=== PATIENT | male | born 1970 | race Caucasian/White ===

== ENCOUNTER 2021-12-09 09:14 | Outpatient (CLI) | payer OTHER, SELFPAY ==
--- NOTE | 2021-12-09 10:58 | W.ANESCHARGE ---
Anesthesia Charges Start Date/Time Anesthesia Start Date: 12/09/21 Anesthesia Start Time: 10:35 Stop Date/Time Anesthesia Stop Date: 12/09/21 Anesthesia Stop Time: 10:55 Summary Emergency: No
--- NOTE | 2021-12-09 10:59 | W.ANESCHARGE ---
Anesthesia Charges Start Date/Time Anesthesia Start Date: 12/09/21 Anesthesia Start Time: 10:35 Stop Date/Time Anesthesia Stop Date: 12/09/21 Anesthesia Stop Time: 10:55 Summary Emergency: No
== END 2021-12-09 09:15 | disposition home or self-care (01) ==
LOC: OP CLINIC 09:14
PROVIDERS: PCP Family Medicine; Visit Provider Internal Medicine Gastroenterology
DX: R10.13 Epigastric pain (principal); K21.9 Gastro-esophageal reflux disease without esophagitis; R12 Heartburn; R07.9 Chest pain, unspecified
CPT/HCPCS: 00731; 43239; J2704

== ENCOUNTER 2023-01-22 14:00 | Emergency (ER) | payer OTHER, SELFPAY ==
[2023-01-22] VITALS (21 sets, daily range): BP systolic 125–139; BP diastolic 83–95; PULSE 102–130; RESP 16; TEMP 36.8; O2SAT 94–96; BMI 23.7
--- NOTE | 2023-01-22 14:28 | ED.ARRPALP ---
HPI - Arrhythmia/Palpitations General Time Seen by Provider: 14:28 <Shelli Carlton MD - Last Filed: 01/22/23 17:23> Date Seen: 01/22/23 <Shelli Carlton MD - Last Filed: 01/22/23 17:23> Chief Complaint: Arrhythmia/Palpitations <Shelli Carlton MD - Last Filed: 01/22/23 17:23> Stated Complaint: irregular heartbeat <Shelli Carlton MD - Last Filed: 01/22/23 17:23> Time Seen by Provider: 01/22/23 14:27 <Shelli Carlton MD - Last Filed: 01/22/23 17:23> Source: patient and RN notes reviewed <Shelli Carlton MD - Last Filed: 01/22/23 17:23> Mode of arrival: ambulatory <Shelli Carlton MD - Last Filed: 01/22/23 17:23> Limitations: no limitations <Shelli Carlton MD - Last Filed: 01/22/23 17:23> History of Present Illness HPI narrative: Juan is a very pleasant 53-year-old gentleman with a history of PTSD and anxiety after an acute appendicitis who comes to the emergency room with elevated heart rate. Patient states that he awoke at 0400 hours with a panic attack as he has been under considerable stress and recently found out that his job is going to be eliminated in the next few months. He notes that he took a half a mg of Ativan and that usually this will help calm the situation down but unfortunately his heart rate has continued. He denies chest pain but does note he has pain radiating into his left shoulder blade. He states that this happens often when he is stressed. He denies any nausea or recent illness and has not had a fever. He has no history of DVT, no swelling of his calves and has not been on a long plane ride or long car ride lately. His states that after his appendicitis he was never the same. Patient denies alcohol use, tobacco use, Benadryl use, excess caffeine. Patient adamantly denies any drug use as well. <Shelli Carlton MD - Last Filed: 01/22/23 17:23> Related Data Home Medications: Home Medications Medication Instructions Recorded Confirmed amlodipine 5 mg tablet 10 mg PO DAILY 10/15/21 01/22/23 atenolol 50 mg tablet 50 mg PO DAILY 10/15/21 01/22/23 hydrochlorothiazide 25 mg tablet 25 mg PO DAILY 10/15/21 01/22/23 lorazepam 0.5 mg tablet 0.5 mg PO .once daily 10/15/21 01/22/23 mirtazapine 45 mg tablet 45 mg PO .Bedtime 10/15/21 10/15/21 sertraline 200 mg capsule 200 mg PO QDAY 09/09/22 01/22/23 buspirone 15 mg tablet 15 mg PO 3XD 01/22/23 01/22/23 <Shelli Carlton MD - Last Filed: 01/22/23 17:23> Allergies/Adverse Reactions: Allergies Allergy/AdvReac Type Severity Reaction Status Date / Time No Known Allergies Allergy Unknown Verified 01/22/23 14:12 <Shelli Carlton MD - Last Filed: 01/22/23 17:23> Review of Systems Status of ROS: Reports: 10 or more systems reviewed and unremarkable except as noted in History and below <Shelli Carlton MD - Last Filed: 01/22/23 17:23> Const: Denies: fever, chills or change in weight <Shelli Carlton MD - Last Filed: 01/22/23 17:23> Eyes: Denies: change in vision <Shelli Carlton MD - Last Filed: 01/22/23 17:23> ENMT: Denies: throat pain, neck pain or difficulty swallowing <Shelli Carlton MD - Last Filed: 01/22/23 17:23> Cardio: Reports: palpitations; Denies: chest pain, swelling of feet/ankles, lightheadedness or shortness of breath with exertion <Shelli Carlton MD - Last Filed: 01/22/23 17:23> Resp: Denies: shortness of breath or cough <Shelli Carlton MD - Last Filed: 01/22/23 17:23> GI: Denies: abdominal pain, nausea, vomiting or difficulty swallowing <Shelli Carlton MD - Last Filed: 01/22/23 17:23> : Denies: painful urination <Shelli Carlton MD - Last Filed: 01/22/23 17:23> Musculo: Reports: back pain (Left shoulder); Denies: neck pain <Shelli Carlton MD - Last Filed: 01/22/23 17:23> Integ/Breast: Denies: rash <Shelli Carlton MD - Last Filed: 01/22/23 17:23> Neuro: Denies: headache <Shelli Carlton MD - Last Filed: 01/22/23 17:23> PFSH PFS Social History: Social History Smoking Status: Never smoker Non-prescribed substance use: denies use <Shelli Carlton MD - Last Filed: 01/22/23 17:23> Exam Narrative: Exam Narrative: Patient is alert and oriented. Somewhat of a flat affect. Is very anxious. EOM is full. Head is atraumatic normocephalic. Heart with a tachycardic rate but normal rhythm. Lungs are clear bilaterally. Abdomen soft. Lower extremities without calf tenderness edema or pain. Pedal pulses symmetrical. <Shelli Carlton MD - Last Filed: 01/22/23 17:23> Const: Vital Signs, click to edit/add: Vital Signs - 24 hr 01/22/23 14:09 01/22/23 16:22 01/22/23 18:03 Temperature 98.2 F Pulse Rate 125 H Pulse Rate [Pulse Oximeter] 130 H Respiratory Rate 16 Blood Pressure 139/95 H Blood Pressure [Ri ght Upper Arm] 139/88 Pulse Oximetry 95 94 Oxygen Delivery Me thod Room Air 01/22/23 18:15 01/22/23 18:30 01/22/23 18:46 Temperature Pulse Rate 119 H 115 H 117 H Pulse Rate [Pulse Oximeter] Respiratory Rate Blood Pressure Blood Pressure [Ri ght Upper Arm] Pulse Oximetry 95 94 95 Oxygen Delivery Me thod 01/22/23 19:00 01/22/23 19:18 01/22/23 19:34 Temperature Pulse Rate 121 H 118 H 118 H Pulse Rate [Pulse Oximeter] Respiratory Rate Blood Pressure Blood Pressure [Ri ght Upper Arm] Pulse Oximetry 95 95 94 Oxygen Delivery Me thod 01/22/23 19:59 01/22/23 20:00 01/22/23 20:01 Temperature Pulse Rate 110 H 110 H 113 H Pulse Rate [Pulse Oximeter] Respiratory Rate Blood Pressure 131/83 Blood Pressure [Ri ght Upper Arm] Pulse Oximetry 94 94 95 Oxygen Delivery Me thod 01/22/23 20:02 01/22/23 20:45 01/22/23 21:00 Temperature Pulse Rate 112 H 117 H 112 H Pulse Rate [Pulse Oximeter] Respiratory Rate Blood Pressure Blood Pressure [Ri ght Upper Arm] Pulse Oximetry 94 95 95 Oxygen Delivery Me thod 01/22/23 21:15 01/22/23 21:35 01/22/23 21:57 Temperature Pulse Rate 111 H 123 H 104 H Pulse Rate [Pulse Oximeter] Respiratory Rate Blood Pressure 136/91 H Blood Pressure [Ri ght Upper Arm] Pulse Oximetry 95 95 95 Oxygen Delivery Me thod 01/22/23 21:58 01/22/23 22:00 01/22/23 22:02 Temperature Pulse Rate 103 H 102 H 102 H Pulse Rate [Pulse Oximeter] Respiratory Rate Blood Pressure 125/89 Blood Pressure [Ri ght Upper Arm] Pulse Oximetry 95 95 96 Oxygen Delivery Me thod <Shelli Carlton MD - Last Filed: 01/22/23 17:23> Vital Signs, click to edit/add: Vital Signs - 24 hr 01/22/23 14:09 01/22/23 16:22 01/22/23 18:03 Temperature 98.2 F Pulse Rate 125 H Pulse Rate [Pulse Oximeter] 130 H Respiratory Rate 16 Blood Pressure 139/95 H Blood Pressure [Ri ght Upper Arm] 139/88 Pulse Oximetry 95 94 Oxygen Delivery Me thod Room Air 01/22/23 18:15 01/22/23 18:30 01/22/23 18:46 Temperature Pulse Rate 119 H 115 H 117 H Pulse Rate [Pulse Oximeter] Respiratory Rate Blood Pressure Blood Pressure [Ri ght Upper Arm] Pulse Oximetry 95 94 95 Oxygen Delivery Me thod 01/22/23 19:00 01/22/23 19:18 01/22/23 19:34 Temperature Pulse Rate 121 H 118 H 118 H Pulse Rate [Pulse Oximeter] Respiratory Rate Blood Pressure Blood Pressure [Ri ght Upper Arm] Pulse Oximetry 95 95 94 Oxygen Delivery Me thod 01/22/23 19:59 01/22/23 20:00 01/22/23 20:01 Temperature Pulse Rate 110 H 110 H 113 H Pulse Rate [Pulse Oximeter] Respiratory Rate Blood Pressure 131/83 Blood Pressure [Ri ght Upper Arm] Pulse Oximetry 94 94 95 Oxygen Delivery Me thod 01/22/23 20:02 01/22/23 20:45 01/22/23 21:00 Temperature Pulse Rate 112 H 117 H 112 H Pulse Rate [Pulse Oximeter] Respiratory Rate Blood Pressure Blood Pressure [Ri ght Upper Arm] Pulse Oximetry 94 95 95 Oxygen Delivery Me thod 01/22/23 21:15 01/22/23 21:35 01/22/23 21:57 Temperature Pulse Rate 111 H 123 H 104 H Pulse Rate [Pulse Oximeter] Respiratory Rate Blood Pressure 136/91 H Blood Pressure [Ri ght Upper Arm] Pulse Oximetry 95 95 95 Oxygen Delivery Me thod 01/22/23 21:58 01/22/23 22:00 01/22/23 22:02 Temperature Pulse Rate 103 H 102 H 102 H Pulse Rate [Pulse Oximeter] Respiratory Rate Blood Pressure 125/89 Blood Pressure [Ri ght Upper Arm] Pulse Oximetry 95 95 96 Oxygen Delivery Me thod <Philipp Schrader DO - Last Filed: 01/22/23 22:14> Documenting provider has reviewed patient's vital signs: yes <Shelli Carlton MD - Last Filed: 01/22/23 17:23> Course Course ED Course: At this time differential diagnosis does include anxiety/panic attack, acute coronary event, electrolyte imbalance, hyperthyroidism. Will place an IV give 1 L of normal saline along with 0.5 mg IV Ativan. Will also check CBC, comprehensive, EKG, troponin, D-dimer. <Shelli Carlton MD - Last Filed: 01/22/23 17:23> Reevaluation(s) Reevaluation #1: Patient noted to have improvement in heart rate to the 110 range with Ativan 0.5 mg. We have repeated that and patient does state he is feeling better. At this time magnesium low normal at 1.7 and have ordered magnesium 400 mg p.o.. Patient noted to have a negative D-dimer. Oxygen levels within normal limits. No chest pain at this time. Currently waiting on TSH. <Shelli Carlton MD - Last Filed: 01/22/23 17:23> Reevaluation #2: Patient does note that he is feeling better. Notes that his shoulder pain which is present during panic attacks full events and panic attacks is better. Unfortunately in spite of 1 mg IV Ativan total he still has a persistent sinus tachycardia at 0115. Will obtain 2nd EKG as well as get 2nd troponin. Valium 5 mg p.o. is ordered. <Shelli Carlton MD - Last Filed: 01/22/23 17:23> Vital Signs Vital signs: Initial Vital Signs Temperature 98.2 F 01/22/23 14:09 Temperature Source Temporal Artery Scan 01/22/23 14:09 Pulse Rate 130 H 01/22/23 14:09 Respiratory Rate 16 01/22/23 14:09 Blood Pressure 139/88 01/22/23 14:09 Blood Pressure Mean 105 01/22/23 14:09 Blood Pressure Position Sitting 01/22/23 14:09 Pulse Oximetry 95 01/22/23 14:09 Oxygen Delivery Method Room Air 01/22/23 14:09 Vital Signs Temperature 98.2 F 01/22/23 14:09 Pulse Rate 130 H 01/22/23 14:09 Respiratory Rate 16 01/22/23 14:09 Blood Pressure 139/88 01/22/23 14:09 Pulse Oximetry 95 01/22/23 14:09 Oxygen Delivery Method Room Air 01/22/23 14:09 Temperature 98.2 F 01/22/23 14:09 Pulse Rate 102 H 01/22/23 22:02 Respiratory Rate 16 01/22/23 14:09 Blood Pressure 125/89 01/22/23 22:02 Pulse Oximetry 96 01/22/23 22:02 Oxygen Delivery Method Room Air 01/22/23 14:09 <Shelli Carlton MD - Last Filed: 01/22/23 17:23> Initial Vital Signs Temperature 98.2 F 01/22/23 14:09 Temperature Source Temporal Artery Scan 01/22/23 14:09 Pulse Rate 130 H 01/22/23 14:09 Respiratory Rate 16 01/22/23 14:09 Blood Pressure 139/88 01/22/23 14:09 Blood Pressure Mean 105 01/22/23 14:09 Blood Pressure Position Sitting 01/22/23 14:09 Pulse Oximetry 95 01/22/23 14:09 Oxygen Delivery Method Room Air 01/22/23 14:09 Vital Signs Temperature 98.2 F 01/22/23 14:09 Pulse Rate 130 H 01/22/23 14:09 Respiratory Rate 16 01/22/23 14:09 Blood Pressure 139/88 01/22/23 14:09 Pulse Oximetry 95 01/22/23 14:09 Oxygen Delivery Method Room Air 01/22/23 14:09 Temperature 98.2 F 01/22/23 14:09 Pulse Rate 102 H 01/22/23 22:02 Respiratory Rate 16 01/22/23 14:09 Blood Pressure 125/89 01/22/23 22:02 Pulse Oximetry 96 01/22/23 22:02 Oxygen Delivery Method Room Air 01/22/23 14:09 <Philipp Schrader, DO - Last Filed: 01/22/23 22:14> Medications Administered Medications: Generic Name Dose Route Start Last Admin Trade Name Debbi PRN Reason Stop Dose Admin Adenosine 6 mg 01/22/23 21:59 01/22/23 21:50 Adenosine 6 Mg/2ml Inj IVP 01/22/23 22:00 6 mg ONCE ONE Administration Metoprolol Tartrate 5 mg 01/22/23 21:59 01/22/23 21:53 Metoprolol Tartrate 1 Mg/Ml Inj IVP 01/22/23 22:00 5 mg ONCE ONE Administration Discontinued Medications Generic Name Dose Route Start Last Admin Trade Name Debbi PRN Reason Stop Dose Admin Diazepam 5 mg 01/22/23 17:14 01/22/23 17:34 Diazepam 5 Mg Tablet PO 01/22/23 17:15 5 mg ONCE ONE Administration Sodium Chloride 1,000 mls @ 1,000 mls/hr 01/22/23 14:43 01/22/23 16:11 0.9 % Sodium Chloride 1000 Ml IV 01/22/23 15:42 Infused .Q1H SASCHA Infusion Lorazepam 0.5 mg 01/22/23 14:44 01/22/23 15:11 Lorazepam 2 Mg/Ml Inj IVP 01/22/23 14:45 0.5 mg ONCE ONE Administration Lorazepam 0.5 mg 01/22/23 15:23 01/22/23 16:22 Lorazepam 2 Mg/Ml Inj IVP 01/22/23 15:24 0.5 mg ONCE ONE Administration Magnesium Oxide 400 mg 01/22/23 16:38 01/22/23 17:34 Magnesium Oxide 400 Mg Tablet PO 01/22/23 16:39 400 mg ONCE ONE Administration <Shelli Carlton MD - Last Filed: 01/22/23 17:23> Generic Name Dose Route Start Last Admin Trade Name Freq PRN Reason Stop Dose Admin Adenosine 6 mg 01/22/23 21:59 01/22/23 21:50 Adenosine 6 Mg/2ml Inj IVP 01/22/23 22:00 6 mg ONCE ONE Administration Metoprolol Tartrate 5 mg 01/22/23 21:59 01/22/23 21:53 Metoprolol Tartrate 1 Mg/Ml Inj IVP 01/22/23 22:00 5 mg ONCE ONE Administration Discontinued Medications Generic Name Dose Route Start Last Admin Trade Name Freq PRN Reason Stop Dose Admin Diazepam 5 mg 01/22/23 17:14 01/22/23 17:34 Diazepam 5 Mg Tablet PO 01/22/23 17:15 5 mg ONCE ONE Administration Sodium Chloride 1,000 mls @ 1,000 mls/hr 01/22/23 14:43 01/22/23 16:11 0.9 % Sodium Chloride 1000 Ml IV 01/22/23 15:42 Infused .Q1H SASCHA Infusion Lorazepam 0.5 mg 01/22/23 14:44 01/22/23 15:11 Lorazepam 2 Mg/Ml Inj IVP 01/22/23 14:45 0.5 mg ONCE ONE Administration Lorazepam 0.5 mg 01/22/23 15:23 01/22/23 16:22 Lorazepam 2 Mg/Ml Inj IVP 01/22/23 15:24 0.5 mg ONCE ONE Administration Magnesium Oxide 400 mg 01/22/23 16:38 01/22/23 17:34 Magnesium Oxide 400 Mg Tablet PO 01/22/23 16:39 400 mg ONCE ONE Administration <Philipp Schrader DO - Last Filed: 01/22/23 22:14> MDM - Arrhythmia/Palpitations MDM Narrative Medical decision making narrative: 1. Tachycardia-likely related to stressors but not resolved at this time in spite of 1 mg IV Ativan. At this time EKG is reassuring and troponin is negative. Thus do not feel that we are dealing with acute coronary syndrome. However, will obtain 2nd EKG and troponin at this time. D-dimer negative and given the normal oxygenation with no chest pain do not feel that we are dealing with a PE at this time or dissection. At this time. Onset of symptoms at 0400 hours, initially felt confident that we would not repeat a troponin in light of duration of symptoms but at this time patient has ongoing tachycardia. Will repeat EKG as well as troponin. No evidence of low vitamin-D, hyperthyroidism. 2. Anxiety-this is severe. Valium 5 mg p.o. at this time. Patient tells me that he has tried to taper off of Ativan previously but was unable to do so. He is not currently in a taper describes taking Ativan 0.5 mg daily. At this time recommend a full mg tomorrow morning and then back to 0.5 mg. Patient should also follow up with his primary MD. 3. Disposition- this case will be signed out to my partner for disposition. Will review EKG and 2nd troponin as well as response to p.o. Valium. I have also added chest x-ray. <Shelli Carlton MD - Last Filed: 01/22/23 17:23> Patient was signed out to me pending deck assessment and CTA. CTA results showed no acute abnormality other than mildly dilated left ventricle which could be signs of heart failure but he is not having any shortness of breath and otherwise is not appear to be in heart failure. There is a dilated fluid-filled stomach this could be sign of gastroenteritis but he is having no abdominal symptoms at this time. Patient was assessed by [facility] who states he can be discharged home from their standpoint but or working on increasing his resources for his anxiety. I did speak to Cardiology from [place] and explained the situation. They state the patient still appears anxious and he states he is feeling anxious and they recommended give him adenosine even with heart rate 116 so that we can slow him down farther and fully be able to check for any signs of EKG abnormalities. They then is recommended Lopressor some down more if his heart rate comes back up. They are agreeable with sending him home on metoprolol if it does help. Adenosine was given 6 mg and it did slow his heart rate down to the 40s for short amount time and I still saw the P waves and no signs of a flutter or AFib. Was difficult to say for certain that there was not a flutter the monitor. Show more just movement artifact. He was then given 5 mg of Lopressor which brought his heart rate down to 101. We did an EKG which did showed normal sinus rhythm with possible first-degree AV block and a rate of 104 beats per minute. Of note we will I will get of clear EKG and there is some artifact. Patient is feeling well and states he does the all his symptoms are all from anxiety. He is on atenolol at home 50 mg so I did explain to him that he should take his regular dose but he does have persistent tachycardia to take a 2nd dose once a day for total of 100 mg. He states he checks his blood pressure frequently and his blood pressure cuff does show him his heart rate. He is otherwise doing well we discharged home. <Philipp Schrader DO - Last Filed: 01/22/23 22:14> Medical Records Attestation: I reviewed the patient's medical records. <Shelli Carlton MD - Last Filed: 01/22/23 17:23> Lab Data Attestation: I reviewed the patient's lab results. <Shelli Carlton MD - Last Filed: 01/22/23 17:23> Labs: Lab Results 01/22/23 01/22/23 01/22/23 Range/Units 15:12 15:35 17:14 WBC 12.87 H (4.50-11.00) K/uL RBC 5.43 (4.30-5.90) m/uL Hgb 15.6 (13.5-17.5) gm/dL Hct 45.6 (37.0-53.0) % MCV 84 (80-100) fL MCH 29 (26-34) pg MCHC 34 (32-36) gm/dL RDW Coeff of Seb 12.4 (11.5-15.5) % Plt Count 311 (140-440) K/uL Neut % (Auto) 91.9 H (42.0-72.0) % Lymph % (Auto) 2.9 L (20-44) % [place] % (Auto) 3.8 (0.0-11.0) % Eos % (Auto) 0.1 (0.0-7.0) % Baso % (Auto) 0.1 (0.0-3.0) % Neut # (Auto) 11.80 H (1.7-7.0) K/uL Lymph # (Auto) 0.40 L (0.90-2.90) K/uL [place] # (Auto) 0.50 (0.00-0.90) K/UL Eos # (Auto) 0.00 (0.00-0.50) K/uL Baso # (Auto) 0.00 (0.00-0.30) K/uL Abs Immat Gran (auto) 0.20 (0.00-0.30) K/uL Imm/Tot Granulo (auto) 1.2 % D-Dimer Quant (PE/DVT) < 0.27 (0.00-0.50) ug/ml Sodium 139 (135-149) mmol/L Potassium 3.3 L (3.6-5.1) mmol/L Chloride 101 (96-114) mmol/L Carbon Dioxide 26 (20-32) mmol/L Anion Gap 12 (7-15) mEq/L BUN 28 (7-30) mg/dL Creatinine 1.0 (0.5-1.5) mg/dL Estimated Creat Clear 95.44 Estimated GFR 89 ml/min Glucose 116 H (60-115) mg/dL Calcium 9.3 (8.4-10.6) mg/dL Magnesium 1.7 (1.5-2.6) mg/dL Total Bilirubin 0.9 (0.1-1.5) mg/dL AST 25 (12-35) U/L ALT 28 (4-50) U/L Alkaline Phosphatase 59 (40-150) U/L Troponin I < 0.01 L (0.01-0.04) ng/mL Total Protein 7.8 (6.0-8.3) g/dL Albumin 4.9 (3.3-5.0) g/dL 25-OH Vitamin D Total 45 (30-80) ng/mL TSH 0.709 (0.270-4.200) uIU/mL Urine Color (Yellow) Urine Appearance (Clear) Urine pH (5.0-8.5) Ur Specific [place] (1.000-1.030) Urine Protein (Negative) Urine Glucose (UA) (Negative) Urine Ketones (Negative) Urine Blood (Negative) Urine Nitrite (Negative) Urine Bilirubin (Negative) Urine Urobilinogen (0.2-1.0) Ur Leukocyte Esterase (Negative) Urine RBC (0-2) Urine WBC (0-5) Ur Squamous Epith Cells (None-Few) Urine Bacteria (None) Urine Opiates Screen (Negative) Ur Oxycodone Screen (Negative) Urine Methadone Screen (Negative) Ur Propoxyphene Screen Ur Barbiturates Screen (Negative) U Tricyclic Antidepress (Negative) Ur Phencyclidine Scrn (Negative) Ur Amphetamines Screen (Negative) U Methamphetamines Scrn (Negative) U Benzodiazepines Scrn (Negative) Urine Cocaine Screen (Negative) U Marijuana (THC) Screen (Negative) Ur Drug Screen Comment SARS-CoV-2 (PCR) Negative SARS-CoV-2 (Negative) Influenza Type A (PCR) Negative PCR FLU A (Negative) Influenza Type B (PCR) Negative PCR FLU B (Negative) RSV (PCR) Negative PCR RSV (Negative) POC Troponin I 0.01 (0.01-0.04) ng/ml 01/22/23 Range/Units Unknown WBC (4.50-11.00) K/uL RBC (4.30-5.90) m/uL Hgb (13.5-17.5) gm/dL Hct (37.0-53.0) % MCV (80-100) fL MCH (26-34) pg MCHC (32-36) gm/dL RDW Coeff of Seb (11.5-15.5) % Plt Count (140-440) K/uL Neut % (Auto) (42.0-72.0) % Lymph % (Auto) (20-44) % [place] % (Auto) (0.0-11.0) % Eos % (Auto) (0.0-7.0) % Baso % (Auto) (0.0-3.0) % Neut # (Auto) (1.7-7.0) K/uL Lymph # (Auto) (0.90-2.90) K/uL [place] # (Auto) (0.00-0.90) K/UL Eos # (Auto) (0.00-0.50) K/uL Baso # (Auto) (0.00-0.30) K/uL Abs Immat Gran (auto) (0.00-0.30) K/uL Imm/Tot Granulo (auto) % D-Dimer Quant (PE/DVT) (0.00-0.50) ug/ml Sodium (135-149) mmol/L Potassium (3.6-5.1) mmol/L Chloride (96-114) mmol/L Carbon Dioxide (20-32) mmol/L Anion Gap (7-15) mEq/L BUN (7-30) mg/dL Creatinine (0.5-1.5) mg/dL Estimated Creat Clear Estimated GFR ml/min Glucose (60-115) mg/dL Calcium (8.4-10.6) mg/dL Magnesium (1.5-2.6) mg/dL Total Bilirubin (0.1-1.5) mg/dL AST (12-35) U/L ALT (4-50) U/L Alkaline Phosphatase (40-150) U/L Troponin I (0.01-0.04) ng/mL Total Protein (6.0-8.3) g/dL Albumin (3.3-5.0) g/dL 25-OH Vitamin D Total (30-80) ng/mL TSH (0.270-4.200) uIU/mL Urine Color Yellow (Yellow) Urine Appearance Clear (Clear) Urine pH 6.0 (5.0-8.5) Ur Specific [place] 1.020 (1.000-1.030) Urine Protein Negative (Negative) Urine Glucose (UA) Negative (Negative) Urine Ketones Negative (Negative) Urine Blood 2+ A (Negative) Urine Nitrite Negative (Negative) Urine Bilirubin Negative (Negative) Urine Urobilinogen 0.2 (0.2-1.0) Ur Leukocyte Esterase Negative (Negative) Urine RBC 2-5 A (0-2) Urine WBC 2-5 (0-5) Ur Squamous Epith Cells None (None-Few) Urine Bacteria None (None) Urine Opiates Screen Negative (Negative) Ur Oxycodone Screen Negative (Negative) Urine Methadone Screen Negative (Negative) Ur Propoxyphene Screen Not Reportable Ur Barbiturates Screen Negative (Negative) U Tricyclic Antidepress Negative (Negative) Ur Phencyclidine Scrn Negative (Negative) Ur Amphetamines Screen Negative (Negative) U Methamphetamines Scrn Negative (Negative) U Benzodiazepines Scrn POSITIVE A (Negative) Urine Cocaine Screen Negative (Negative) U Marijuana (THC) Screen Negative (Negative) Ur Drug Screen Comment See Note SARS-CoV-2 (PCR) (Negative) Influenza Type A (PCR) (Negative) Influenza Type B (PCR) (Negative) RSV (PCR) (Negative) POC Troponin I (0.01-0.04) ng/ml <Shelli Carlton MD - Last Filed: 01/22/23 17:23> Lab Results 01/22/23 01/22/23 01/22/23 Range/Units 15:12 15:35 17:14 WBC 12.87 H (4.50-11.00) K/uL RBC 5.43 (4.30-5.90) m/uL Hgb 15.6 (13.5-17.5) gm/dL Hct 45.6 (37.0-53.0) % MCV 84 (80-100) fL MCH 29 (26-34) pg MCHC 34 (32-36) gm/dL RDW Coeff of Seb 12.4 (11.5-15.5) % Plt Count 311 (140-440) K/uL Neut % (Auto) 91.9 H (42.0-72.0) % Lymph % (Auto) 2.9 L (20-44) % [place] % (Auto) 3.8 (0.0-11.0) % Eos % (Auto) 0.1 (0.0-7.0) % Baso % (Auto) 0.1 (0.0-3.0) % Neut # (Auto) 11.80 H (1.7-7.0) K/uL Lymph # (Auto) 0.40 L (0.90-2.90) K/uL [place] # (Auto) 0.50 (0.00-0.90) K/UL Eos # (Auto) 0.00 (0.00-0.50) K/uL Baso # (Auto) 0.00 (0.00-0.30) K/uL Abs Immat Gran (auto) 0.20 (0.00-0.30) K/uL Imm/Tot Granulo (auto) 1.2 % D-Dimer Quant (PE/DVT) < 0.27 (0.00-0.50) ug/ml Sodium 139 (135-149) mmol/L Potassium 3.3 L (3.6-5.1) mmol/L Chloride 101 (96-114) mmol/L Carbon Dioxide 26 (20-32) mmol/L Anion Gap 12 (7-15) mEq/L BUN 28 (7-30) mg/dL Creatinine 1.0 (0.5-1.5) mg/dL Estimated Creat Clear 95.44 Estimated GFR 89 ml/min Glucose 116 H (60-115) mg/dL Calcium 9.3 (8.4-10.6) mg/dL Magnesium 1.7 (1.5-2.6) mg/dL Total Bilirubin 0.9 (0.1-1.5) mg/dL AST 25 (12-35) U/L ALT 28 (4-50) U/L Alkaline Phosphatase 59 (40-150) U/L Troponin I < 0.01 L (0.01-0.04) ng/mL Total Protein 7.8 (6.0-8.3) g/dL Albumin 4.9 (3.3-5.0) g/dL 25-OH Vitamin D Total 45 (30-80) ng/mL TSH 0.709 (0.270-4.200) uIU/mL Urine Color (Yellow) Urine Appearance (Clear) Urine pH (5.0-8.5) Ur Specific [place] (1.000-1.030) Urine Protein (Negative) Urine Glucose (UA) (Negative) Urine Ketones (Negative) Urine Blood (Negative) Urine Nitrite (Negative) Urine Bilirubin (Negative) Urine Urobilinogen (0.2-1.0) Ur Leukocyte Esterase (Negative) Urine RBC (0-2) Urine WBC (0-5) Ur Squamous Epith Cells (None-Few) Urine Bacteria (None) Urine Opiates Screen (Negative) Ur Oxycodone Screen (Negative) Urine Methadone Screen (Negative) Ur Propoxyphene Screen Ur Barbiturates Screen (Negative) U Tricyclic Antidepress (Negative) Ur Phencyclidine Scrn (Negative) Ur Amphetamines Screen (Negative) U Methamphetamines Scrn (Negative) U Benzodiazepines Scrn (Negative) Urine Cocaine Screen (Negative) U Marijuana (THC) Screen (Negative) Ur Drug Screen Comment SARS-CoV-2 (PCR) Negative SARS-CoV-2 (Negative) Influenza Type A (PCR) Negative PCR FLU A (Negative) Influenza Type B (PCR) Negative PCR FLU B (Negative) RSV (PCR) Negative PCR RSV (Negative) POC Troponin I 0.01 (0.01-0.04) ng/ml 01/22/23 Range/Units Unknown WBC (4.50-11.00) K/uL RBC (4.30-5.90) m/uL Hgb (13.5-17.5) gm/dL Hct (37.0-53.0) % MCV (80-100) fL MCH (26-34) pg MCHC (32-36) gm/dL RDW Coeff of Seb (11.5-15.5) % Plt Count (140-440) K/uL Neut % (Auto) (42.0-72.0) % Lymph % (Auto) (20-44) % [place] % (Auto) (0.0-11.0) % Eos % (Auto) (0.0-7.0) % Baso % (Auto) (0.0-3.0) % Neut # (Auto) (1.7-7.0) K/uL Lymph # (Auto) (0.90-2.90) K/uL [place] # (Auto) (0.00-0.90) K/UL Eos # (Auto) (0.00-0.50) K/uL Baso # (Auto) (0.00-0.30) K/uL Abs Immat Gran (auto) (0.00-0.30) K/uL Imm/Tot Granulo (auto) % D-Dimer Quant (PE/DVT) (0.00-0.50) ug/ml Sodium (135-149) mmol/L Potassium (3.6-5.1) mmol/L Chloride (96-114) mmol/L Carbon Dioxide (20-32) mmol/L Anion Gap (7-15) mEq/L BUN (7-30) mg/dL Creatinine (0.5-1.5) mg/dL Estimated Creat Clear Estimated GFR ml/min Glucose (60-115) mg/dL Calcium (8.4-10.6) mg/dL Magnesium (1.5-2.6) mg/dL Total Bilirubin (0.1-1.5) mg/dL AST (12-35) U/L ALT (4-50) U/L Alkaline Phosphatase (40-150) U/L Troponin I (0.01-0.04) ng/mL Total Protein (6.0-8.3) g/dL Albumin (3.3-5.0) g/dL 25-OH Vitamin D Total (30-80) ng/mL TSH (0.270-4.200) uIU/mL Urine Color Yellow (Yellow) Urine Appearance Clear (Clear) Urine pH 6.0 (5.0-8.5) Ur Specific [place] 1.020 (1.000-1.030) Urine Protein Negative (Negative) Urine Glucose (UA) Negative (Negative) Urine Ketones Negative (Negative) Urine Blood 2+ A (Negative) Urine Nitrite Negative (Negative) Urine Bilirubin Negative (Negative) Urine Urobilinogen 0.2 (0.2-1.0) Ur Leukocyte Esterase Negative (Negative) Urine RBC 2-5 A (0-2) Urine WBC 2-5 (0-5) Ur Squamous Epith Cells None (None-Few) Urine Bacteria None (None) Urine Opiates Screen Negative (Negative) Ur Oxycodone Screen Negative (Negative) Urine Methadone Screen Negative (Negative) Ur Propoxyphene Screen Not Reportable Ur Barbiturates Screen Negative (Negative) U Tricyclic Antidepress Negative (Negative) Ur Phencyclidine Scrn Negative (Negative) Ur Amphetamines Screen Negative (Negative) U Methamphetamines Scrn Negative (Negative) U Benzodiazepines Scrn POSITIVE A (Negative) Urine Cocaine Screen Negative (Negative) U Marijuana (THC) Screen Negative (Negative) Ur Drug Screen Comment See Note SARS-CoV-2 (PCR) (Negative) Influenza Type A (PCR) (Negative) Influenza Type B (PCR) (Negative) RSV (PCR) (Negative) POC Troponin I (0.01-0.04) ng/ml <Philipp Schrader, - Last Filed: 01/22/23 22:14> Imaging Data CTA chest: Radiologist's impression: 1. Negative for acute pulmonary embolism. 2. New borderline cardiomegaly with mildly dilated left ventricle. 3. Markedly dilated fluid-filled stomach with fluid in the colon and distal esophagus. Correlate clinically for signs of gastroenteritis. Please note that all CT scans at this facility use dose modulation, iterative reconstruction, and/or weight-based dosing when appropriate to reduce radiation dose to as low as reasonably achievable. Dictated by Geetha Du MD @ 01/22/2023 9:03:12 PM <Philipp Schrader DO - Last Filed: 01/22/23 22:14> ECG Data Attestation: I personally reviewed and interpreted this ECG as follows: <Shelli Carlton MD - Last Filed: 01/22/23 17:23> ECG interpretation date: 01/22/23 <Shelli Carlton MD - Last Filed: 01/22/23 17:23> Interpretation: EKG by my read shows sinus tachycardia. Rate is 121. I do not note any acute ST or T-wave changes. <Shelli Carlton MD - Last Filed: 01/22/23 17:23> Discharge Plan Discharge Clinical Impression: Anxiety, Tachycardia <Shelli Carlton MD - Last Filed: 01/22/23 17:23> Patient Disposition: Home w/ Parent or Adult <Shelli Carlton MD - Last Filed: 01/22/23 17:23> Condition: Improved <Shelli Carlton MD - Last Filed: 01/22/23 17:23> Additional Instructions: May take 1 mg of Ativan tomorrow morning and then go back to your normal dose. If you have persistent tachycardia at home which is heart rate over 100 take an extra dose of atenolol. Only take the extra dose once a day for total of 100 mg daily. If the heart rate is below 100 do not take the extra dose. Also do not take the extra dose if your blood pressure is lower than normal. Keep well hydrated. Recommend adding magnesium daily. Return to the emergency room for worsening symptoms and as needed. <Shelli Carlton MD - Last Filed: 01/22/23 17:23> Prescriptions: No Action atenolol 50 mg tablet 50 mg PO DAILY hydrochlorothiazide 25 mg tablet 25 mg PO DAILY mirtazapine 45 mg tablet 45 mg PO .Bedtime lorazepam 0.5 mg tablet 0.5 mg PO .once daily amlodipine 5 mg tablet 10 mg PO DAILY sertraline 200 mg capsule 200 mg PO QDAY buspirone 15 mg tablet 15 mg PO 3XD <Shelli Carlton MD - Last Filed: 01/22/23 17:23> Follow Up/Referrals: Willy Coleman MD [Primary Care Provider] - <Shelli Carlton MD - Last Filed: 01/22/23 17:23> Stand Alone Forms: [facility] Info Instructions <Shelli Carlton MD - Last Filed: 01/22/23 17:23>
[2023-01-22] MEDS: 0.9 % SODIUM CHLORIDE 1000 ml 1,000 ML IV (15:11)
[2023-01-22] MEDS: LORazepam 2 MG/ML inj 0.5 MG IVP ×2 (15:11→16:22)
[2023-01-22 15:21] LABS: Basophils Percent Auto 0.1 % (0.0-3.0); Eosinophils Percent Auto 0.1 % (0.0-7.0); Hematocrit 45.6 % (37.0-53.0); Hemoglobin* 15.6 gm/dL (13.5-17.5); Immature Granulocytes Pct Auto 1.2 %; Lymphocytes Percent Auto 2.9 % (20-44); Mean Corpuscular HGB Conc 34 gm/dL (32-36); Mean Corpuscular Hemoglobin 29 pg (26-34); Mean Corpuscular Volume 84 fL (80-100); Monocytes Percent Auto 3.8 % (0.0-11.0); Neutrophils Percent Auto 91.9 % (42.0-72.0); Platelet Count* 311 K/uL (140-440); RDW Coefficient of Variation % 12.4 % (11.5-15.5); Red Blood Count 5.43 m/uL (4.30-5.90); White Blood Count* 12.87 K/uL (4.50-11.00)
[2023-01-22 15:34] LABS: Slide Review Reflex No
[2023-01-22 15:39] LABS: Albumin* 4.9 g/dL (3.3-5.0); Chloride* 101 mmol/L (96-114); Sodium* 139 mmol/L (135-149)
[2023-01-22 15:40] LABS: Potassium* 3.3 mmol/L (3.6-5.1)
[2023-01-22 15:41] LABS: Est. Creatinine Clearance* 95.44; Estimated Glomerular Filt Rate 89 ml/min
[2023-01-22 15:42] LABS: Alanine Aminotransferase* 28 U/L (4-50); Alkaline Phosphatase* 59 U/L (40-150); Anion Gap 12 mEq/L (7-15); Aspartate Amino Transferase* 25 U/L (12-35); Bilirubin Total* 0.9 mg/dL (0.1-1.5); Blood Urea Nitrogen* 28 mg/dL (7-30); Calcium* 9.3 mg/dL (8.4-10.6); Carbon Dioxide* 26 mmol/L (20-32); Glucose* 116 mg/dL (60-115); Total Protein* 7.8 g/dL (6.0-8.3)
[2023-01-22 16:05] LABS: Magnesium* 1.7 mg/dL (1.5-2.6)
[2023-01-22 16:12] LABS: D Dimer Quantitative* < 0.27 ug/ml (0.00-0.50)
[2023-01-22 16:23] LABS: Vitamin D 25 Hydroxy* 45 ng/mL (30-80)
[2023-01-22 16:26] LABS: Troponin I* < 0.01 ng/mL (0.01-0.04)
[2023-01-22 16:37] LABS: TSH With Reflex to FT4* 0.709 uIU/mL (0.270-4.200)
[2023-01-22 17:01] LABS: PCR FLU A Negative PCR FLU A (Negative); PCR FLU B Negative PCR FLU B (Negative); PCR RSV Negative PCR RSV (Negative)
[2023-01-22 17:02] LABS: SARS PCR* Negative SARS-CoV-2 (Negative)
--- NOTE | 2023-01-22 17:22 | CRLHL7_ITS ---
For Patients: As a result of the Century Cures Act, medical imaging exams and procedure reports are released immediately into your electronic medical record. You may view this report before your referring provider. If you have questions, please contact your health care provider. INDICATION: Tachycardia. TECHNIQUE: Chest 1 view. COMPARISON: 07/16/2020. FINDINGS: Cardiovascular and mediastinum: Heart size and vasculature are normal in caliber and appearance. Lungs and pleural spaces: Lungs are clear. No sign of infiltrate or mass. No sign of pleural effusion. No pneumothorax. Bones and soft tissues: No significant findings. IMPRESSION: Unremarkable chest. Dictated by Deric Marquis MD @ 01/22/2023 7:10:39 PM (Electronically Signed)
--- NOTE | 2023-01-22 17:30 | ED.NURSE ---
Patient offered ham sandwich and accepts.
[2023-01-22] MEDS: MAGNESIUM OXIDE 400 MG TABLET PO (17:34)
[2023-01-22] MEDS: diazePAM 5 MG TABLET PO (17:34)
--- NOTE | 2023-01-22 17:56 | ED.NURSE ---
of patient requested to speak without patient preset. She reports serious concern with level of depression and anxiety she has seen over the past three years. She reports that he has gone to speak with mental health but once he goes he refuses to go back. He stares at the wall all day. She reports severe decline in his relationships with his children as well due to his drastic personality change.
[2023-01-22 18:18] LABS: Troponin, Point-of-Care* 0.01 ng/ml (0.01-0.04)
[2023-01-22 18:55] LABS: Appearance Urine Clear (Clear); Bilirubin Urine Negative (Negative); Blood Urine 2+ (Negative); Color Urine Yellow (Yellow); Glucose Urine Negative (Negative); Ketones Urine Negative (Negative); Leukocyte Esterase Urine Negative (Negative); Nitrite Urine Negative (Negative); Protein Urine Negative (Negative); Urobilinogen Urine 0.2 (0.2-1.0)
--- NOTE | 2023-01-22 19:00 | ED.NURSE ---
Patient put division head light to ask about taking his rx Buspar that he has in his pocket. MD gives ok to take.
[2023-01-22 19:01] LABS: Amphetamine Screen Urine Negative (Negative); Barbiturate Screen Urine Negative (Negative); Benzodiazepines Screen Urine POSITIVE (Negative); Cannabinoid Screen Urine Negative (Negative); Cocaine Screen Urine Negative (Negative); Methadone Screen Urine Negative (Negative); Methamphetamines Screen Urine Negative (Negative); Opiate Screen Urine Negative (Negative); Oxycodone Screen Urine Negative (Negative); Phencyclidine Screen Urine Negative (Negative); Tricyclic Antidepressant Urine Negative (Negative)
--- NOTE | 2023-01-22 19:28 | CRLHL7_ITS ---
For Patients: As a result of the Century Cures Act, medical imaging exams and procedure reports are released immediately into your electronic medical record. You may view this report before your referring provider. If you have questions, please contact your health care provider. INDICATION: Persistent tachycardia. COMPARISON: CT chest 02/09/2020. TECHNIQUE: CT chest angiogram PE protocol acquired with 95 cc of Isovue 370 IV contrast. Coronal and sagittal reconstructions. 2D and 3D MIP images for post processing were performed and interpreted on an independent workstation, and 3D images were permanently archived. FINDINGS: The heart appears increased in size compared to prior exam, now borderline enlarged, with mildly dilated left ventricle. Normal caliber thoracic aorta and central pulmonary arteries. No acute pulmonary embolism identified. No pericardial effusion. No thoracic lymphadenopathy. The thyroid gland is normal in appearance. No focal consolidation, pleural effusion, or pneumothorax. Mild bibasilar dependent atelectasis. No suspicious pulmonary nodules identified. No central endobronchial lesion or significant bronchial wall thickening. Markedly distended fluid-filled stomach. Fluid in the distal esophagus may be due to reflux. Fluid within the visualized colon. Mild nonspecific thickening of the left adrenal gland. The visualized upper abdomen is otherwise unremarkable. Degenerative changes of the spine. IMPRESSION: 1. Negative for acute pulmonary embolism. 2. New borderline cardiomegaly with mildly dilated left ventricle. 3. Markedly dilated fluid-filled stomach with fluid in the colon and distal esophagus. Correlate clinically for signs of gastroenteritis. Please note that all CT scans at this facility use dose modulation, iterative reconstruction, and/or weight-based dosing when appropriate to reduce radiation dose to as low as reasonably achievable. Dictated by Geetha Du MD @ 01/22/2023 9:03:12 PM (Electronically Signed)
--- NOTE | 2023-01-22 20:04 | ED.NURSE ---
Patient participating with DEC.
[2023-01-22] MEDS: ADENOSINE 6 MG/2ML INJ IVP (21:50)
[2023-01-22] MEDS: METOPROLOL TARTRATE 1 MG/ML inj 5 MG IVP (21:53)
== END 2023-01-22 22:29 | disposition home or self-care (01) ==
PROVIDERS: Family Medicine; Emergency Provider Student in an Organized Health Care Education/Training Program; PCP Family Medicine
DX: F41.9 Anxiety disorder, unspecified (principal); R00.0 Tachycardia, unspecified
CPT/HCPCS: 36415; 71045; 71275; 80053; 80306; 81001; 82306; 83735; 84443; 84484; 85025; 85379; 87631; 93005; 96374; 96375; 96376; 99284; 99285; A9270; J0153; J2060; J7030; Q9967

== ENCOUNTER 2023-02-03 19:40 | Outpatient (CLI) | payer OTHER, SELFPAY | END 2023-02-03 19:41 | disposition home or self-care (01) | LOC: AMB 02-06 11:35 | PROVIDERS: PCP Family Medicine; Visit Provider Family Medicine | DX: R41.82 Altered mental status, unspecified (principal) | CPT/HCPCS: A0425; A0427 ==

== ENCOUNTER 2023-02-03 20:10 | Emergency (ER) | payer OTHER, SELFPAY ==
[2023-02-03 20:25] VITALS: BP 118/83; PULSE 89; RESP 16; TEMP 37; O2SAT 99
--- NOTE | 2023-02-03 20:49 | ED.GENADULT ---
HPI - General Adult General Time Seen by Provider: 20:50 Date Seen: 02/03/23 Chief complaint: Unspecified Complaint, Adult Stated complaint: Anxiety Time Seen by Provider: 02/03/23 20:13 Source: patient Mode of arrival: EMS Limitations: no limitations History of Present Illness HPI narrative: 53-year-old male brought in by EMS. Patient's spouse was brought in by EMS and paramedics did not feel patient could be left at home due to anxiety. Patient self has no complaints today. He has a significant history anxiety as well as hypertension. He says he does not feel any more anxious than usual. Denies suicide or homicide ideation. No chest pain, shortness of breath, nausea, vomiting, diarrhea. Related Data Home Medications Medication Instructions Recorded Confirmed amlodipine 5 mg tablet 10 mg PO DAILY 10/15/21 02/03/23 atenolol 50 mg tablet 50 mg PO DAILY 10/15/21 02/03/23 hydrochlorothiazide 25 mg tablet 25 mg PO DAILY 10/15/21 02/03/23 lorazepam 0.5 mg tablet 0.5 mg PO .once daily 10/15/21 02/03/23 mirtazapine 45 mg tablet 45 mg PO .Bedtime 10/15/21 02/03/23 sertraline 200 mg capsule 200 mg PO QDAY 09/09/22 02/03/23 buspirone 15 mg tablet 15 mg PO 3XD 01/22/23 02/03/23 Allergies Allergy/AdvReac Type Severity Reaction Status Date / Time No Known Allergies Allergy Unknown Verified 02/03/23 20:23 [facility] Social History Smoking Status: Never smoker Non-prescribed substance use: denies use Exam Narrative: Exam Narrative: General: Well-developed and well-nourished, no acute distress Head: Atraumatic and normocephalic Eyes: Pupils are equal reactive, extraocular motions intact, conjunctiva clear ENT: External nose and ears are normal, posterior pharynx without erythema or exudate Neck: No midline cervical tenderness, full spontaneous range of motion the neck, trachea midline, no adenopathy Heart: Regular rate and rhythm no murmurs or thrills Lungs: Clear to auscultation bilaterally without wheezes or crackles Abdomen: Soft, nontender, nondistended with active bowel sounds Musculoskeletal: No tenderness, deformity, or edema Neurologic: Awake, alert, and oriented x3, no gross focal neurologic deficits, cranial nerves intact as tested Psych: Mood and affect are appropriate Skin: No rashes Const: Vital Signs, click to edit/add: Vital Signs - 24 hr 02/03/23 20:25 Temperature 98.6 F Pulse Rate [Pulse Oximeter] 89 Respiratory Rate 16 Blood Pressure [Ri ght Upper Arm] 118/83 Pulse Oximetry 99 Oxygen Delivery Me thod Room Air Course Course ED Course: Patient seen and examined, prior records are reviewed. Patient presents today as a right along from EMS. His history of anxiety but has no complaints today. Stable for discharge. Vital Signs Vital signs: Initial Vital Signs Temperature 98.6 F 02/03/23 20:25 Temperature Source Temporal Artery Scan 02/03/23 20:25 Pulse Rate 89 02/03/23 20:25 Respiratory Rate 16 02/03/23 20:25 Blood Pressure 118/83 02/03/23 20:25 Blood Pressure Mean 94 02/03/23 20:25 Blood Pressure Position Sitting 02/03/23 20:25 Pulse Oximetry 99 02/03/23 20:25 Oxygen Delivery Method Room Air 02/03/23 20:25 Vital Signs Temperature 98.6 F 02/03/23 20:25 Pulse Rate 89 02/03/23 20:25 Respiratory Rate 16 02/03/23 20:25 Blood Pressure 118/83 02/03/23 20:25 Pulse Oximetry 99 02/03/23 20:25 Oxygen Delivery Method Room Air 02/03/23 20:25 Temperature 98.6 F 02/03/23 20:25 Pulse Rate 89 02/03/23 20:25 Respiratory Rate 16 02/03/23 20:25 Blood Pressure 118/83 02/03/23 20:25 Pulse Oximetry 99 02/03/23 20:25 Oxygen Delivery Method Room Air 02/03/23 20:25 Discharge Plan Discharge Clinical Impression: Anxiety Patient Disposition: Home w/ Parent or Adult Condition: Stable Instructions: Anxiety (ED) Additional Instructions: Continue your regular medications and outpatient treatment Activity Level: No Restrictions Discharge Diet: Regular Prescriptions: No Action atenolol 50 mg tablet 50 mg PO DAILY hydrochlorothiazide 25 mg tablet 25 mg PO DAILY mirtazapine 45 mg tablet 45 mg PO .Bedtime lorazepam 0.5 mg tablet 0.5 mg PO .once daily amlodipine 5 mg tablet 10 mg PO DAILY sertraline 200 mg capsule 200 mg PO QDAY buspirone 15 mg tablet 15 mg PO 3XD Follow Up/Referrals: Willy Coleman MD [Primary Care Provider] - Stand Alone Forms: [facility] Info Instructions
== END 2023-02-03 21:38 | disposition home or self-care (01) ==
LOC: ED 20:58
PROVIDERS: Emergency Provider Family Medicine; PCP Family Medicine
DX: F41.9 Anxiety disorder, unspecified (principal)
CPT/HCPCS: 95992; 99283

== ENCOUNTER 2023-10-28 13:14 | Emergency (ER) | payer OTHER, SELFPAY ==
[2023-10-28 13:29] VITALS: BP 137/81; PULSE 110; RESP 26; TEMP 37.7; O2SAT 97; BMI 23.1
--- NOTE | 2023-10-28 15:36 | ED_ITS ---
HPI - General Adult General Chief complaint: Anxiety Stated complaint: Heart palp, anxiety attack Time Seen by Provider: 10/28/23 15:21 History of Present Illness HPI narrative: Patient is a 53-year-old white male with history of Parkinson's and anxiety, he woke up for this morning had significant anxiety intermittently through the day felt some palpitations. He has had this in the past. At this time on presentation he has sinus rhythm at 102 beats per minute with no acute ST T wave changes he has had no chest pain, he has had no breathing difficulty, no diaphoresis or arm pain or neck pain or jaw pain. He has had multiple presentations with similar anxiety issues and typically that is the source of his concerns. The patient denies leg swelling, edema, he has had negative D- dimer in the past with similar presentation. He denies trauma or injury. He is on Sinemet for his Parkinson's. He did take an Ativan 0.5 mg today he is on buspirone atenolol mirtazapine sertraline and venlafaxine as well. The patient did wake up with a slight sore throat in the middle the night but he reports is better at this time. No cough, no shortness of breath. Related Data Home Medications ?Medication ?Instructions ?Recorded ?Confirmed amlodipine 5 mg tablet 10 mg PO DAILY 10/15/21 10/28/23 atenolol 50 mg tablet 50 mg PO DAILY 10/15/21 10/28/23 hydrochlorothiazide 25 mg tablet 25 mg PO DAILY 10/15/21 10/28/23 lorazepam 0.5 mg tablet 0.5 mg PO .once daily 10/15/21 10/28/23 mirtazapine 45 mg tablet 45 mg PO .Bedtime 10/15/21 10/28/23 sertraline 200 mg capsule 200 mg PO QDAY 09/09/22 02/03/23 buspirone 15 mg tablet 15 mg PO 3XD 01/22/23 10/28/23 carbidopa 25 mg-levodopa 100 mg 1 tab PO 3XD 10/28/23 10/28/23 tablet venlafaxine 150 mg 150 mg PO DAILY 10/28/23 10/28/23 capsule,extended release 24 hr Allergies Allergy/AdvReac Type Severity Reaction Status Date / Time No Known Allergies Allergy Unknown Verified 12/19/23 20:23 Review of Systems Status of ROS: Reports: 6 or more systems reviewed and unremarkable except as noted in History and below [facility] Social History Smoking Status: Never smoker How often do you have a drink containing alcohol: never AUDIT-C Alcohol total score: 0 Non-prescribed substance use: denies use Exam Narrative: Exam Narrative: Objective: Patient's temp is 99? Alert orient x3, is little initially little tachycardic when he arrives but he is down to the 95 to 1 00 on his monitor. His HEENT is unremarkable, his throat appears clear not red he reports that is better now neck supple Chest is clear Heart rate and rhythm regular with door 6 systolic ejection murmur no ectopy noted abdomen benign extremities are no edema neurologic nonfocal Good peripheral perfusion noted Patient denies any chest pain or breathing problem throughout his day-to-day Const: Vital Signs, click to edit/add: Vital Signs - 24 hr 10/28/23 13:29 Temperature 99.9 F H Pulse Rate [Pulse Oximeter] 110 H Respiratory Rate 26 H Blood Pressure [Ri ght Upper Arm] 137/81 Pulse Oximetry 97 Oxygen Delivery Me thod Room Air Course Vital Signs Vital signs: Initial Vital Signs Temperature 99.9 F H 10/28/23 13:29 Temperature Source Temporal Artery Scan 10/28/23 13:29 Pulse Rate 110 H 10/28/23 13:29 Respiratory Rate 26 H 10/28/23 13:29 Blood Pressure 137/81 10/28/23 13:29 Blood Pressure Mean 99 10/28/23 13:29 Pulse Oximetry 97 10/28/23 13:29 Oxygen Delivery Method Room Air 10/28/23 13:29 Vital Signs Temperature 99.9 F H 10/28/23 13:29 Pulse Rate 110 H 10/28/23 13:29 Respiratory Rate 26 H 10/28/23 13:29 Blood Pressure 137/81 10/28/23 13:29 Pulse Oximetry 97 10/28/23 13:29 Oxygen Delivery Method Room Air 10/28/23 13:29 Temperature 99.9 F H 10/28/23 13:29 Pulse Rate 110 H 10/28/23 13:29 Respiratory Rate 26 H 10/28/23 13:29 Blood Pressure 137/81 10/28/23 13:29 Pulse Oximetry 97 10/28/23 13:29 Oxygen Delivery Method Room Air 10/28/23 13:29 Medical Decision Making MDM Narrative Medical decision making narrative: 53-year-old male with a history of Parkinson's and significant anxiety, woke up at 4:00 a.m. with significant anxiety, had a mild sore throat that seems better improved at this time, he also had some palpitations he reports that as a jumping of his heart, not pain not shortness of breath. He has had similar episodes in the past. He did take Ativan and got better. I suggest he try mg Ativan now and any can continue his usual dosages home, and we can see how that progresses his EKG done today shows sinus rhythm at rate of 102 ventricular beats per minute no acute ST T wave changes. At this point I do not think a D- dimer troponin is indicated given he did have chest pain and does not have palpitations at this time I think most of his symptoms are anxiety related. Would recommend continue his home medicines and follow up with regular doctor in next few days for reassessment anxiety and other issues, return to ED if problems or concerns. His is able to drive him home today. Discharge Plan Discharge Clinical Impression: Anxiety, Palpitations Patient Disposition: Home w/ Parent or Adult Condition: Improved Additional Instructions: Continue home meds, light activity, good fluid intake, recheck with your regular doctor next 5-7 days, return to ED as needed. Activity Level: Light activity Discharge Diet: Regular Prescriptions: No Action atenolol 50 mg tablet 50 mg PO DAILY hydrochlorothiazide 25 mg tablet 25 mg PO DAILY mirtazapine 45 mg tablet 45 mg PO .Bedtime lorazepam 0.5 mg tablet 0.5 mg PO .once daily amlodipine 5 mg tablet 10 mg PO DAILY sertraline 200 mg capsule 200 mg PO QDAY venlafaxine 150 mg capsule,extended release 24hr 150 mg PO DAILY carbidopa-levodopa 25-100 mg tablet 1 tab PO 3XD buspirone 15 mg tablet 15 mg PO 3XD Follow Up/Referrals: Willy Coleman MD [Primary Care Provider] - Stand Alone Forms: [facility] Info Instructions
== END 2023-10-28 16:14 | disposition home or self-care (01) ==
LOC: ED 16:04
PROVIDERS: Emergency Provider Family Medicine; PCP Family Medicine
DX: R00.2 Palpitations (principal); F41.9 Anxiety disorder, unspecified
CPT/HCPCS: 99284

== ENCOUNTER 2024-11-17 20:05 | Emergency (ER) | payer OTHER, SELFPAY ==
--- OUTSIDE RECORDS SUMMARY | 2024-11-17 20:07 | XMS_ITS | Clinical Summary ---
Author Organization [facility] Address [address] [place] [id number] Care Team Providers Care Bulldozer Engineer Name Role Phone Willy Coleman MD Primary Care Provider Arpita Beverlyirina Jacome TRACK EQUIPMENT OPERATOR Unavailable [phone] Allergies No known active allergies Medications Magnesium 30 mg tablet Take 1 Tablet by mouth once daily. Active atenoloL (TENORMIN) 50 mg tabletIndications: Benign essential HTN Take 1 Tablet (50 mg) by mouth once daily. 90 Tablet 3 4 Active amLODIPine (NORVASC) 10 mg tabletIndications: Benign essential HTN Take 1 Tablet (10 mg) by mouth once daily. 90 Tablet 3 4 Active carbidopa-levodopa (25-100 mg) 25-100 mg tabletIndications: Parkinson's disease without dyskinesia or fluctuating manifestations (HC) TAKE 1 TABLET BY MOUTH THREE TIMES DAILY 270 Tablet 5 Active clonazePAM (KLONOPIN) 0.5 mg tabletIndications: Generalized anxiety disorder 0.5 - 1 tab PO three times a day PRN as needed for anxiety 90 Tablet 1 5 Active busPIRone (BUSPAR) 15 mg tabletIndications: Generalized anxiety disorder with panic attacks Take 1 Tablet (15 mg) by mouth three times daily. 90 Tablet 2 5 Active mirtazapine (REMERON) 15 mg tabletIndications: Generalized anxiety disorder,Mild episode of recurrent major depressive disorder TAKE 1/2 TABLET(7.5 MG) BY MOUTH AT BEDTIME 45 Tablet 1 07/18/202 5 Active venlafaxine (EFFEXOR XR) 150 mg Extended-Release capsuleIndications :Generalized anxiety disorder,Mild episode of recurrent major depressive disorder Take 1 Capsule (150 mg) by mouth once daily with a meal. 30 Capsule 3 5 Active venlafaxine (Effexor XR) 37.5 mg Extended-Release capsuleIndications :Generalized anxiety disorder Take 1 Capsule (37.5 mg) by mouth once daily with a meal. Take along with the 150mg cap for total daily dose of 187.5mg daily 30 Capsule 2 5 Active hydroCHLOROthiazid e 25 mg tabletIndications: Benign essential HTN Take 1 Tablet (25 mg) by mouth once daily. 90 Tablet 3 4 11/03/19 25 Discontin ued(*Med complete/ Regimen complete/ Level of care change) venlafaxine (Effexor XR) 37.5 mg Extended-Release capsuleIndications :Generalized anxiety disorder Take 1 Capsule (37.5 mg) by mouth once daily with a meal. Take along with the 150mg cap for total daily dose of 187.5mg daily 30 Capsule 2 5 11/01/19 25 Discontin ued(Reord er (E-cancel not sent)) oxybutynin (DITROPAN) 5 mg tabletIndications: OAB (overactive bladder) Take 0.5 Tablets (2.5 mg) by mouth two times daily. 60 Tablet 1 5 11/18/19 25 Discontin ued(*Evelyne ent states no longer taking) Active Problems Problem Noted Date Diagnosed Date Chronic constipation 11/17/2024 Parkinson's disease 11/02/2024 OAB (overactive bladder) 11/02/2024 Urinary incontinence 11/02/2024 Atypical chest pain 10/18/2021 Controlled substance agreement signed 06/05/2021 Overview (06/05/2021): 06/05/21 Gavi Palm DNP [employer]ENT CONTR[employer] WORKER [employer]GICAL TECH/psychiatry Insomnia, idiopathic 04/10/2020 Depression 03/06/2020 Generalized anxiety disorder 03/06/2020 Prediabetes Benign essential HTN Resolved Problems Problem Noted Date Diagnosed Date Resolved Date Chronic GERD 04/15/2021 01/27/2024 Controlled substance agreement signed 11/28/2020 06/05/2021 Overview (11/28/2020): 06/25/20 Gavi Palm DNP [employer] WORK[employer] TECH/psychiatry Anxiety and depression 02/13/202003/06 Encounters Date Type Department Care Team Description 11/17/2024 3:45 PM CDT Office Visit [facility] [address] [place] [address] Willy Coleman MD Medication Management (Discuss medications ); Constipation (Last bowel movement was last week) 11/16/2024 Travel 11/14/2024 Telephone [facility] [address] [place] [address] Willy Coleman MD Appointment (Questions ) 11/02/2024 3:45 PM CDT Office Visit [facility] [address] [place] [address] Willy Coleman MD Urinary Problem (Frequency, dripping, accidents at night, started about 6 months ago) 11/02/2024 Refill [facility] [address] [place] [address] Willy Coleman MD Refill Request (OXYBUTYNIN 5MG TABLETS) 11/02/2024 Travel 10/31/2024 Refill [facility] [address] [place] [phone] Krunal Brasher MD Refill Request (VENLAFAXINE ER 37.5 MG) 10/28/2024 Travel 09/02/2024 1:15 PM CDT Telemedicine [facility] [address] [place] [phone] Krunal Brasher MD Follow Up; Medication Management; Telehealth 09/01/2024 Travel from Last 3 Months Immunizations Immunization Administration Dates Next Due COVID-19 VACCINE SPIKEVAX (M ODERNA 50MCG/0.5ML) 12YO+ PFS 01/27/2024,02/02/2023 COVID-19 vaccine (Pfizer-Bio NTech 30mcg/0.3mL) 12YO+ BIVALENT PF, MDV 12/03/2021 COVID-19 vaccine (GigzonBio NTech 30mcg/0.3mL) 12YO+ KI-SUCROSE PF, MDV 06/13/2021 COVID-19 vaccine (GigzonBio NTech 30mcg/0.3mL) PF, MDV 01/15/2021,05/26/2020,05/05/2020 Hepatitis A (Adult) 01/29/2007 INFLUENZA, IIV3 PF (AGE >= 6 MO) 01/27/2024 Influenza, IIV3 (Age >=3 years) 11/26/2012,11/26,01/29/2007 Influenza, IIV4 02/02/2023,,01/15/2021,2019,12/09/2018 Pneumococcal Conj 20-valent (Prevnar 20) 01/27/2024 Td (Age >=7 Years) 09/03/1989,09/26/1981 Tdap 03/05/2020,02/26/2007 Typhoid (injectable) 02/26/2007 Zoster (Shingrix-RZV, recombinant) 09/07/2020, Family History Medical History Relation Name Comments Hypertension Father Samuel age 30 Leukemia Father Samuel CLL Cancer-breast Mother Shereen Hypertension Mother Shereen Polycythemia Mother Shereen Anesthesia Problem No Family History Cancer-colon No Family History Cancer-prostate No Family History Diabetes No Family History Heart attack No Family History Relation Name Status Comments Father Samuel Mother Shereen Social History Tobacco Use Types Packs/Day Years Used Date Smoking Tobacco: Never Smokeless Tobacco: Former Chew Tobacco Cessation:Counseling Given: No Alcohol Use Standard Drinks/Week Comments Not Currently 0 (1 standard drink = 0.6 oz pur e alcohol) PHQ-2 Answer Date Recorded PHQ-2 TOTAL SCORE 6 09/01/2024 Social Connections Answer Date Recorded Do you often feel lonely or isolated from those around you? 0 03/01/2024 Alcohol Use Answer Date Recorded How often do you have a drink containing alcohol ? 0 11/17/2024 Average Number of Drinks Not on file Frequency of Binge Drinking Not on file 03/2024 Financial Resource Strain Answer Date R ecorded Difficulty of Paying Living Expenses 2 01/22/2024 Difficulty of Paying Living Expenses 1 01/22/2024 Food Insecurity Answer Date Recorded Do you worry your food will run out before you are able to buy more? 1 03/01/2024 Transportation Needs Answer Date Record ed Does lack of transportation keep you from medica l appointments? 1 03/01/2024 Does lack of transportation keep you from work, meetings or getting things that you need? 1 03/01/2024 Housing Stability Answer Date Recorded What is your housing situation today? 1 03/01/2024 Utilities Answer Date Recorded Do you have trouble paying f or utilities (for example, heat, electricity, water, phone)? 1 03/01/2024 Sex and Gender Information Value Date Recorded Sex Assigned at Male 03/02/2020 4:44 PM CHANNEL DEVELOPMENT DIRECTOR Legal Sex Male 11:51 AM CDT Gender Identity Male 03/02/2020 4:44 PM CHANNEL DEVELOPMENT DIRECTOR Sexual Orientation Straight 03/02/2020 4: 44 PM CHANNEL DEVELOPMENT DIRECTOR Obstetrics History Last Filed Vital Signs Vital Sign Reading Time Taken Comments Blood Pressure 113/70 11/17/2024 3:41 PM CDT Pulse 79 11/17/2024 3:41 PM CDT Temperature 36.7 C (98.1 F) 01/29/2023 12:44 PM CHANNEL DEVELOPMENT DIRECTOR Respiratory Rate 18 02/18/2023 1:00 PM CHANNEL DEVELOPMENT DIRECTOR Oxygen Saturation 100% 11/17/2024 3:41 PM CDT Inhaled Oxygen Concentration - - Weight 77 kg (169 lb 12.8 oz) 11/17/2024 3:41 PM CDT Height 182.9 cm (6') 01/27/2024 7:56 AM CHANNEL DEVELOPMENT DIRECTOR Body Mass Index 23.03 01/27/2024 7:56 AM CHANNEL DEVELOPMENT DIRECTOR Plan of Treatment Upcoming Encounters Date Type Department Care Team (Late st Contact Info) Description 12/22/2024 3:45 PM CHANNEL DEVELOPMENT DIRECTOR Office Visit [place] [address] [place] [address] Willy Coleman MD [address] [place] [address] Health Maintenance Due Date Last Done Comments Hepatitis B series for 19+ ( 1 of 3 - 19+ 3-dose series) 01/19/1988 Fecal testing non-DNA (FIT,FOBT,iFOBT) for age 45-75 02/17/2023 02/17/2022, 11/14/2020 Influenza Vaccine (#1) 2024 , 02/02/2023, 10/18/2021, Additional history exists BMI (ht and wt on same day) for age 18+ 01/26/2025 01/27/2024, 02/02/2023, 01/29/2022, Additional history exists Depression screening for age 12+ 09/01/2025 09/01/2024, 05/06/2024, 05/05/2024, Additional history exists Lipids for age 45-75 02/03/2028 02/02/2023, 01/15/2021, 02/13/2020 Tetanus booster 03/05/2030 03/05/2020, 02/16, 09/03/1989, Additional history exists RSV vaccine for adults or (1 - 1-dose 75+ series) 01/19/2044 Zoster (shingles) series for age 50+ Completed 09/07/2020, 03/05/2020 Hepatitis C screening for ag e 18-79 Completed 01/15/2021 HIV for age 15-65 Completed 01/29/2022 COVID-19 vaccine series Completed 01/27/20 24, 02/02/2023, 12/03/2021, Additional history exists Pneumococcal series for age 50+ Completed Procedures Procedure Name Priority Date/Time Associated Diagnosis Comments LIPID PANEL W REFLEX MEASURED LDL Routine 02/02/2023 7:55 AM CHANNEL DEVELOPMENT DIRECTOR Lipid screening OCCULT BLOOD IFOBT STOOL Routine 02/17/2022 2:36 PM CHANNEL DEVELOPMENT DIRECTOR Screening for colon cancer ANTI HIV 1/2 Routine 01/29/2022 8:26 AM CHANNEL DEVELOPMENT DIRECTOR Screening for HIV (human immunodeficiency virus) ANTI HCV Routine 01/15/2021 9:35 AM CHANNEL DEVELOPMENT DIRECTOR Need for hepatitis C screening test from Last 3 Months or Most Recently Relevant to Health Maintenance Results * (ABNORMAL) LIPID PANEL W REFLEX MEASURED LDL (02/02/2023 7:55 AM CHANNEL DEVELOPMENT DIRECTOR) CHOLESTEROL,TOTAL 123 100 - 199 mg/dL 02/02/2023 2:03 PM CHANNEL DEVELOPMENT DIRECTOR [facility] Comment: Cholesterol, Total Reference Ranges Desirable <200 mg/dL Borderline 200-239 mg/dL High >=240 mg/dL TRIGLYCERIDES 68 <150 mg/dL 02/02/2023 2:03 PM CHANNEL DEVELOPMENT DIRECTOR [facility] HDL CHOLESTEROL 36(L) >40 mg/dL 2:03 PM CHANNEL DEVELOPMENT DIRECTOR [facility] NON-HDL CHOLESTEROL 87 <145 mg/dl 02/02/2023 2:03 PM CHANNEL DEVELOPMENT DIRECTOR [facility] CHOL/HDL RATIO 3.42 <4.50 02/02/2023 2:03 PM CHANNEL DEVELOPMENT DIRECTOR [facility] LDL CHOLESTEROL 73 <=130 mg/dL 02/02/2023 2:03 PM CHANNEL DEVELOPMENT DIRECTOR [facility] VLDL CHOLESTEROL 14 <=30 mg/dL 02/02/2023 2:03 PM CHANNEL DEVELOPMENT DIRECTOR [facility] PROVIDER ORDERED STATUS RANDOM 02/02/2023 2:03 PM CHANNEL DEVELOPMENT DIRECTOR [facility] Blood BLOOD SPECIMEN / Unknown Venipuncture / Unknown 02/02/2023 7:55 AM CHANNEL DEVELOPMENT DIRECTOR 02/02/2023 7:55 AM CHANNEL DEVELOPMENT DIRECTOR Willy Coleman MD CHEMISTRY Final Result [facility] [address] [place] [address], * OCCULT BLOOD IFOBT STOOL (02/17/2022 2:36 PM CHANNEL DEVELOPMENT DIRECTOR) STOOL BLOOD ,IFOBT Negative Negative 02/24/2022 8:42 AM CHANNEL DEVELOPMENT DIRECTOR [facility] Stool STOOL SPECIMEN / Unknown Non-Blood / Unknown 02/17/2022 2:36 PM CHANNEL DEVELOPMENT DIRECTOR 02/21/2022 2:36 PM CHANNEL DEVELOPMENT DIRECTOR us Willy Coleman MD LABORATORY Final Result Performing Organization Address City/[facility]/ZIP Co de Phone Number [facility] [address] [place] [address], * ANTI HIV 1/2 (01/29/2022 8:26 AM CHANNEL DEVELOPMENT DIRECTOR) HIV-1/HIV-2 ANTIBODY Non-Reacti ve Non-Reacti ve 02/01/2022 1:22 AM CHANNEL DEVELOPMENT DIRECTOR [facility] Comment:HIV-1 p24 and HIV-1/ HIV-2 Ab not detected. Blood BLOOD SPECIMEN / Unknown Venipuncture / Unknown 01/29/2022 8:26 AM CHANNEL DEVELOPMENT DIRECTOR 01/29/2022 8:29 AM CHANNEL DEVELOPMENT DIRECTOR us Willy Coleman MD SEND OUTS Final Result Performing Organization Address [facility] Co de Phone Number [facility] [address] [place] [address], [place] * ANTI HCV (01/15/2021 9:35 AM CHANNEL DEVELOPMENT DIRECTOR) HEPATITIS C ANTIBODY Non-React charli Non-React charli 01/15/2021 6:53 PM CHANNEL DEVELOPMENT DIRECTOR [facility] Comment:Antibodies to HCV no t detected; does not exclude the possibility of exposure to HCV. Blood BLOOD SPECIMEN / Unknown Venipuncture / Unknown 01/15/2021 9:35 AM CHANNEL DEVELOPMENT DIRECTOR 01/15/2021 9:38 AM CHANNEL DEVELOPMENT DIRECTOR Willy Coleman MD SEND OUTS Final Result Performing Organization Address City/[facility]/ZIP Co de Phone Number [facility] [address] [place] [address], [place] from Last 3 Months or Most Recently Relevant to Health Maintenance Insurance [employer] [facility] Care Teams Bulldozer Engineer Relationship Specialty Start Date End Date Willy Coleman MD [address] [place] [address] PCP - General Family Practice 02/13/20 Beverly Palm NP [address] [place] [address] Psychiatry Nurse Practitioner 06/12/20
--- OUTSIDE RECORDS SUMMARY | 2024-11-17 20:07 | XMS_ITS | Clinical Summary ---
Author Organization [facility] Address [address] , [address] [place] [address] Phone Care Team Providers Care Harvest Worker Field Crop Name Role Phone Mario Coffey LPN Unavailable [phone] Conditions or Problems Problem Name Problem Code Onset Date Status Entry Date Provider Comment Standard Description Annotate Parkinson's disease without dyskinesia, with fluctuations 80196537 (SNOMED CT) 08/16 Active 08/16 Samuel Teague MD Parkinson's disease Prediabetes 346603706 (SNOMED CT) 06/08 Active 08/11 Mayra Sparks Prediabetes Imported from [facility]: [employer] ( at 09:03:53 AM) Insomnia, idiopathic 7590625 (SNOMED CT) 04/10 Active 08/11 Mayra Sparks Primary insomnia Imported from [facility]: [facility] ( at 09:03:53 AM) Generalized anxiety disorder 91097437 (SNOMED CT) 03/06 Active 08/11 Mayra Sparks Generalized anxiety disorder Imported from [facility]: [facility] ( at 09:03:53 AM) Depression 89531561 (SNOMED CT) 03/06 Active 08/11 Mayra Sparks Depressive disorder Imported from [facility]: [facility] ( at 09:03:53 AM) Controlled substance agreement signed Z79.899 (ICD-10-CM) 06/05 Active 08/11 Mayra Sparks Other long term care administrator (current) drug therapy Imported from [facility]: [facility] [employer] [facility] ( at 09:03:53 AM) Benign essential HTN I10 (ICD-10-CM) 06/08 Active 08/11 Myara Clare Essential (primary) hypertension Imported from [facility]: [facility] ( at 09:03:53 AM) Atypical chest pain R07.89 (ICD-10-CM) 10/18 Active 08/11 Mayra Sparks Other chest pain Imported from [facility]: [facility] [employer] [facility] ( at 09:03:53 AM) Medications Medication Instructions Start Date Stop Date Generic Name NDC Provider CARBIDOPA-LEVODOPA 25-100 MG TABS Take 1 tablet by mouth four times a day at 8a, 12n, 4p, and 8p 06/20 carbidopa-levodopa [id number] Mario Coffey LPN BUSPIRONE HCL 15 MG TABS Take 1 tablet by mouth three times a day 07/14 buspirone [id number] Samuel Teague MD MAGNESIUM GLUCONATE (MAGNESIUM GLUCONATE) 550 MG TABS Take 1 tablet by mouth once a day MAGNESIUM GLUCONATE Samuel Teague MD CLONAZEPAM 0.5 MG TABS 0.5-1 tablet by mouth three times a day as needed 07/14 clonazepam [id number] Samuel Teague MD HYDROCHLOROTHIAZIDE 25 MG TABS Take 1 tablet by mouth once a day 03/28 hydrochlorothiazide [id number] Samuel Teague MD MIRTAZAPINE 15 MG TABS Take 0.5 tablet by mouth every night 07/14 mirtazapine [id number] Samuel Teague MD VENLAFAXINE HCL ER 150 MG [id number] Take 1 capsule by mouth once a day 07/14 venlafaxine [id number] Samuel Teague MD AMLODIPINE BESYLATE 10 MG TABS Take 1 tablet by mouth once a day 03/28 amlodipine [id number] Samuel Teague MD ATENOLOL 50 MG TABS Take 1 tablet by mouth once a day 03/28 atenolol [id number] Samuel Teague MD CARBIDOPA-LEVODOPA 25-100 MG TABS Take 1 tablet by mouth three times a day 06/20 carbidopa-levodopa [id number] Samuel Teague MD VENLAFAXINE HCL ER 150 MG [id number] Take 1 Capsule (150 mg) by mouth once daily with a meal. 07/14 venlafaxine [id number] QIEUSER QIEUSER VENLAFAXINE HCL ER 37.5 MG [id number] Take 1 Capsule (37.5 mg) by mouth once daily with a meal. Take along with the 150mg cap for total daily dose of 187.5mg daily 07/14 venlafaxine 11643107714 QIEUSER QIEUSER MIRTAZAPINE 15 MG TABS TAKE 1/2 TABLET(7.5 MG) BY MOUTH AT BEDTIME 07/14 mirtazapine 87352664731 QIEUSER QIEUSER MAGNESIUM GLUCONATE (MAGNESIUM GLUCONATE) 550 MG TABS Take 1 Tablet by mouth once daily. 08/16 MAGNESIUM GLUCONATE QIEUSER QIEUSER HYDROCHLOROTHIAZIDE 25 MG TABS Take 1 Tablet (25 mg) by mouth once daily. 03/28 hydrochlorothiazide [id number] QIEUSER QIEUSER CLONAZEPAM 0.5 MG TABS 0.5 - 1 tab PO three times a day PRN as needed for anxiety 07/14 clonazepam [id number] QIEUSER QIEUSER CARBIDOPA-LEVODOPA 25-100 MG TABS TAKE 1 TABLET BY MOUTH THREE TIMES DAILY 06/20 carbidopa-levodopa [id number] QIEUSER QIEUSER BUSPIRONE HCL 15 MG TABS Take 1 Tablet (15 mg) by mouth three times daily. 07/14 buspirone [id number] QIEUSER QIEUSER ATENOLOL 50 MG TABS Take 1 Tablet (50 mg) by mouth once daily. 03/28 atenolol 05223717527 QIEUSER QIEUSER AMLODIPINE BESYLATE 10 MG TABS Take 1 Tablet (10 mg) by mouth once daily. 03/28 amlodipine [id number] QIEUSER QIEUSER Medications Administered No information available. Allergies, Adverse Reactions, Alerts Allergy Name Reaction Description Start Date Severity Statu s Provider No known active allergies No known active allergies Mild Active Mayra Sparks Results Date Name Value Unit Range Flag Description Chart Maintenance: Patient I ntake HCV VIRUS AB Non-Reactive Hep atitis C virus Ab [Presence] in Serum or Plasma by Immunoassay CA 10.3 mg/dL Calcium [Mass/volume] in Serum or Plasma ABSOLUTE BAS completed 10*3/uL Basoph ils [#/volume] in Blood NON-HDL CHOL 87 mg/dL choleste rol, non-HDL, total CHOL/HDL 3.42 cholesterol/ HDL ratio, serum CO2 TOTAL 29 mmol/L carbon diox ekaterina, serum, total GLUCOSE SER 111 mg/dL Glucose [Mass/volume] in Serum or Plasma TRIGLYC TOT 68 mg/dL Triglycer ekaterina [Mass/volume] in Serum or Plasma - mg/dL BUN/CREAT SEE NOTE: Urea nitrogen/Creatinine [Mass Ratio] in Serum or Plasma SODIUM 138 mmol/L Sodium [Moles/volume] in Serum or Plasma PSA 0.67 ng/mL Prostate spec ific Ag [Mass/volume] in Serum or Plasma POTASSIUM 3.9 mmol/L Potassium [Moles/volume] in Serum or Plasma LDL 73 mg/dL Cholesterol i n LDL [Mass/volume] in Serum or Plasma - mg/dL HGBA1C 5.8 % Hemoglobin A1c/Hemoglobin, total in Blood - % HDL 36 mg/dL Cholesterol i n HDL [Mass/volume] in Serum or Plasma - mg/dL CREATININE 1.11 mg/dL Creatinine [Mass/volume] in Serum or Plasma CHOLESTEROL 123 mg/dL Cholester ol [Mass/volume] in Serum or Plasma - mg/dL CHLORIDE 100 mmol/L Chloride [Moles/volume] in Serum or Plasma BUN 19 mg/dL Urea nitrogen [Mass/volume] in Serum or Plasma Internal Other: Authorizatio n AUTHBENEFIT Yes Authoriza tion: Assignment of Benefits and Payment Agreement [email or web address] Yes Authorizat ion: Authorization for [facility] to leave messages, voicemail, send text messages, send emails [email or web address] Yes Authoriz ation: Release/Retrieval of Information to/from Healthcare Facilities, Pharmacy Benefit Payers and Providers ROIAUTHOTHER Yes Authoriz ation: Release of Information - Authorize Others/Insurance - Payment and Healthcare Operations [email or web address] Yes Authoriza tion: Release of Information - Authorize [facility] - Payment and Healthcare Operations [email or web address] Yes Authoriz ation: Notice of privacy practices HIECONSENT Yes Consent To Release information to the Health Information Exchange (HIE) Internal Other: Verbal Autho rization/Emergency Contact VERBAL_EMER Done Verbal au thorization and emergency contact Plan of Care Type Date Detail Appointment 03:30 PM Samuel curtis MD, [facility] [address], [address], [place], [address], Appointment 02:15 PM Samuel curtis MD, [address], [address], [place], [address], Pending order Follow up Pending order Follow up Procedures No information available. Vital Signs No information available. Immunizations No information available. Advance Directives No information available.
--- NOTE | 2024-11-17 21:07 | ED.GENADULT ---
HPI - General Adult General Stated complaint: constipated Time Seen by Provider: 11/17/24 20:16 History of Present Illness HPI narrative: This patient left without being seen by provider Related Data Home Medications ?Medication ?Instructions ?Recorded ?Confirmed amlodipine 5 mg tablet 10 mg PO DAILY 10/15/21 10/28/23 atenolol 50 mg tablet 50 mg PO DAILY 10/15/21 10/28/23 hydrochlorothiazide 25 mg tablet 25 mg PO DAILY 10/15/21 10/28/23 lorazepam 0.5 mg tablet 0.5 mg PO .once daily 10/15/21 10/28/23 mirtazapine 45 mg tablet 45 mg PO .Bedtime 10/15/21 10/28/23 sertraline 200 mg capsule 200 mg PO QDAY 09/09/22 02/03/23 buspirone 15 mg tablet 15 mg PO 3XD 01/22/23 10/28/23 carbidopa 25 mg-levodopa 100 mg 1 tab PO 3XD 10/28/23 10/28/23 tablet venlafaxine 150 mg 150 mg PO DAILY 10/28/23 10/28/23 capsule,extended release 24 hr amlodipine 10 mg tablet 10 mg PO DAILY 02/14/24 02/14/24 atenolol 50 mg tablet 50 mg PO DAILY 02/14/24 02/14/24 buspirone 15 mg tablet 15 mg PO 3XD 02/14/24 02/14/24 carbidopa 25 mg-levodopa 100 mg 1 tab PO 3XD 02/14/24 02/14/24 tablet clonazepam 0.5 mg tablet 0.25 - 0.5 mg PO BID PRN anxiety 02/14/24 02/14/24 hydrochlorothiazide 25 mg tablet 25 mg PO DAILY 02/14/24 02/14/24 mirtazapine 15 mg tablet mg PO 02/14/24 02/14/24 venlafaxine 37.5 mg 37.5 mg PO DAILY 02/14/24 02/14/24 capsule,extended release 24 hr venlafaxine 75 mg capsule,extended 75 mg PO DAILY 02/14/24 02/14/24 release 24 hr Allergies Allergy/AdvReac Type Severity Reaction Status Date / Time No Known Allergies Allergy Unknown Verified 06/16/24 15:38 PFS PFS Social History (System 06/16/24 @ 15:38 by Bridget Verdin) Smoking Status: Never smoker How often do you have a drink containing alcohol: never AUDIT-C Alcohol total score: 0 Non-prescribed substance use: denies use Discharge Plan Discharge Prescriptions: No Action venlafaxine 37.5 mg capsule,extended release 24hr 37.5 mg PO DAILY atenolol 50 mg tablet 50 mg PO DAILY hydrochlorothiazide 25 mg tablet 25 mg PO DAILY amlodipine 10 mg tablet 10 mg PO DAILY clonazepam 0.5 mg tablet 0.25 - 0.5 mg PO BID PRN (Reason: anxiety) mirtazapine 15 mg tablet PO carbidopa-levodopa 25-100 mg tablet 1 tab PO 3XD buspirone 15 mg tablet 15 mg PO 3XD venlafaxine 75 mg capsule,extended release 24hr 75 mg PO DAILY atenolol 50 mg tablet 50 mg PO DAILY hydrochlorothiazide 25 mg tablet 25 mg PO DAILY mirtazapine 45 mg tablet 45 mg PO .Bedtime lorazepam 0.5 mg tablet 0.5 mg PO .once daily amlodipine 5 mg tablet 10 mg PO DAILY sertraline 200 mg capsule 200 mg PO QDAY venlafaxine 150 mg capsule,extended release 24hr 150 mg PO DAILY carbidopa-levodopa 25-100 mg tablet 1 tab PO 3XD buspirone 15 mg tablet 15 mg PO 3XD Follow Up/Referrals: Willy Coleman MD [Primary Care Provider, Family Practice]
== END 2024-11-17 21:12 | disposition left against medical advice (07) ==
PROVIDERS: Emergency Provider Emergency Medicine; PCP Family Medicine
DX: Z53.21 Procedure and treatment not carried out due to patient leaving prior to being seen by health care provider (principal)
CPT/HCPCS: 80053; 80143; 80179; 80306; 83735; 85025; 87426; 99281

== ENCOUNTER 2024-11-17 21:20 | Outpatient (CLI) | payer OTHER, SELFPAY | END 2024-11-17 21:21 | disposition home or self-care (01) | LOC: AMB 11-22 10:54 | PROVIDERS: PCP Family Medicine; Visit Provider Emergency Medicine Emergency Medical Services | DX: R10.9 Unspecified abdominal pain (principal) | CPT/HCPCS: A0425; A0427 ==

== ENCOUNTER 2024-11-17 21:56 | Emergency (ER) | payer OTHER, SELFPAY ==
--- OUTSIDE RECORDS SUMMARY | 2024-11-17 21:57 | XMS_ITS | Clinical Summary ---
Author Organization [facility] Address [address] , [address] [place] [address] Phone Care Team Providers Care Otolaryngology Surgeon Name Role Phone Mario Coffey LPN Unavailable [phone] Conditions or Problems Problem Name Problem Code Onset Date Status Entry Date Provider Comment Standard Description Annotate Parkinson's disease without dyskinesia, with fluctuations 69398744 (SNOMED CT) 08/16 Active 08/16 Samuel Teague MD Parkinson's disease Prediabetes 958916835 (SNOMED CT) 06/08 Active 08/11 Mayra Sparks Prediabetes Imported from [facility]: [facility] ( at 09:03:53 AM) Insomnia, idiopathic 7336410 (SNOMED CT) 04/10 Active 08/11 Mayra Sparks Primary insomnia Imported from [facility]: [facility] ( at 09:03:53 AM) Generalized anxiety disorder 49468393 (SNOMED CT) 03/06 Active 08/11 Mayra Sparks Generalized anxiety disorder Imported from [facility]: [facility] ( at 09:03:53 AM) Depression 38983154 (SNOMED CT) 03/06 Active 08/11 Mayra Sparks Depressive disorder Imported from [facility]: [facility] ( at 09:03:53 AM) Controlled substance agreement signed Z79.899 (ICD-10-CM) 06/05 Active 08/11 Mayra Sparks Other keno terminal operator (current) drug therapy Imported from [facility]: [facility] ( at 09:03:53 AM) Benign essential HTN I10 (ICD-10-CM) 06/08 Active 08/11 Mayra Clare Essential (primary) hypertension Imported from [facility]: [facility] ( at 09:03:53 AM) Atypical chest pain R07.89 (ICD-10-CM) 10/18 Active 08/11 Mayra Sparks Other chest pain Imported from [facility]: [facility] ( at 09:03:53 AM) Medications Medication Instructions Start Date Stop Date Generic Name NDC Provider CARBIDOPA-LEVODOPA 25-100 MG TABS Take 1 tablet by mouth four times a day at 8a, 12n, 4p, and 8p 06/20 carbidopa-levodopa [id number] Mario Cofefy LPN BUSPIRONE HCL 15 MG TABS Take 1 tablet by mouth three times a day 07/14 buspirone [id number] Samuel Teague MD MAGNESIUM GLUCONATE (MAGNESIUM GLUCONATE) 550 MG TABS Take 1 tablet by mouth once a day MAGNESIUM GLUCONATE Samuel Teague MD CLONAZEPAM 0.5 MG TABS 0.5-1 tablet by mouth three times a day as needed 07/14 clonazepam 88470040264 Samuel Teague MD HYDROCHLOROTHIAZIDE 25 MG TABS Take 1 tablet by mouth once a day 03/28 hydrochlorothiazide 65808865859 Samuel Teague MD MIRTAZAPINE 15 MG TABS Take 0.5 tablet by mouth every night 07/14 mirtazapine 60401851319 Samuel Teague MD VENLAFAXINE HCL ER 150 MG [id number] Take 1 capsule by mouth once a day 07/14 venlafaxine 58483980366 Samuel Teague MD AMLODIPINE BESYLATE 10 MG TABS Take 1 tablet by mouth once a day 03/28 amlodipine 75339091897 Samuel Teague MD ATENOLOL 50 MG TABS Take 1 tablet by mouth once a day 03/28 atenolol 79163621084 Samuel Teague MD CARBIDOPA-LEVODOPA 25-100 MG TABS Take 1 tablet by mouth three times a day 06/20 carbidopa-levodopa 50246693356 Samuel Teague MD VENLAFAXINE HCL ER 150 MG [id number] Take 1 Capsule (150 mg) by mouth once daily with a meal. 07/14 venlafaxine 87327861363 QIEUSER QIEUSER VENLAFAXINE HCL ER 37.5 MG [id number] Take 1 Capsule (37.5 mg) by mouth once daily with a meal. Take along with the 150mg cap for total daily dose of 187.5mg daily 07/14 venlafaxine 51234018570 QIEUSER QIEUSER MIRTAZAPINE 15 MG TABS TAKE 1/2 TABLET(7.5 MG) BY MOUTH AT BEDTIME 07/14 mirtazapine 48256464156 QIEUSER QIEUSER MAGNESIUM GLUCONATE (MAGNESIUM GLUCONATE) 550 MG TABS Take 1 Tablet by mouth once daily. 08/16 MAGNESIUM GLUCONATE QIEUSER QIEUSER HYDROCHLOROTHIAZIDE 25 MG TABS Take 1 Tablet (25 mg) by mouth once daily. 03/28 hydrochlorothiazide 71905027239 QIEUSER QIEUSER CLONAZEPAM 0.5 MG TABS 0.5 - 1 tab PO three times a day PRN as needed for anxiety 07/14 clonazepam 26220741273 QIEUSER QIEUSER CARBIDOPA-LEVODOPA 25-100 MG TABS TAKE 1 TABLET BY MOUTH THREE TIMES DAILY 06/20 carbidopa-levodopa 01924919940 QIEUSER QIEUSER BUSPIRONE HCL 15 MG TABS Take 1 Tablet (15 mg) by mouth three times daily. 07/14 buspirone 22270951053 QIEUSER QIEUSER ATENOLOL 50 MG TABS Take 1 Tablet (50 mg) by mouth once daily. 03/28 atenolol 10441779012 QIEUSER QIEUSER AMLODIPINE BESYLATE 10 MG TABS Take 1 Tablet (10 mg) by mouth once daily. 03/28 amlodipine 97116388334 QIEUSER QIEUSER Medications Administered No information available. [...] Detail Appointment 03:30 PM Samuel curtis MD, [facility] [address], [address], [place], [address], Appointment 02:15 PM Samuel curtis MD, [address], [address], [place], [address], Pending order Follow up Pending order Follow up Procedures No information available. Vital Signs No information available. Immunizations No information available. Advance Directives No information available.
[2024-11-17 22:06] VITALS: BP 118/92; PULSE 94; RESP 18; TEMP 36.6; O2SAT 94; BMI 21.8
--- NOTE | 2024-11-17 22:51 | ED.GENADULT ---
HPI - General Adult General Chief complaint: Abdominal Pain Stated complaint: Abdominal Pain Time Seen by Provider: 11/17/24 22:43 History of Present Illness HPI narrative: This 54-year-old male comes in because of constipation. He has Parkinson's disease and is taking medicines that are constipating. He had these dosings increased a few weeks ago. He states that he typically has a bowel movement every 3 days or so but now has not had any for more than a week. He states that he has not taken any medicines or treatments to resolve the constipation. He does have a little bit of liquid leaking out when he stands up and so he has been wearing depends. Related Data Home Medications ?Medication ?Instructions ?Recorded ?Confirmed atenolol 50 mg tablet 50 mg PO DAILY 10/15/21 11/17/24 hydrochlorothiazide 25 mg tablet 25 mg PO DAILY 10/15/21 11/17/24 venlafaxine 150 mg 150 mg PO DAILY 10/28/23 11/17/24 capsule,extended release 24 hr amlodipine 10 mg tablet 10 mg PO DAILY 02/14/24 11/17/24 carbidopa 25 mg-levodopa 100 mg 1 tab PO 3XD 02/14/24 11/17/24 tablet clonazepam 0.5 mg tablet 0.25 - 0.5 mg PO BID PRN anxiety 02/14/24 11/17/24 mirtazapine 15 mg tablet mg PO 02/14/24 02/14/24 Allergies Allergy/AdvReac Type Severity Reaction Status Date / Time No Known Allergies Allergy Unknown Verified 11/17/24 22:11 Review of Systems Status of ROS: Reports: 10 or more systems reviewed and unremarkable except as noted in History and below Narrative: Constitutional: No fevers, no weight gain or loss. Eyes: No discharge. No vision changes. HENT: No congestion, no sore throat, no ear pain. Cardiovascular: No chest pain, no palpitations. Respiratory: No shortness of breath, no wheezes, no cough. Gastrointestinal: Constipation as described above. Genitourinary: No dysuria, no hematuria. Musculoskeletal: Normal range of motion. Skin: No rashes, no pruritis. Neurological: No dizziness, weakness, sensory change, speech change. Endo/Heme/Allergies: No bruising or bleeding. No polydipsia. Pysch: no suicidality, no anxiety, no insomnia. All other systems reviewed and are negative. [facility] PFS Social History (System 06/16/24 @ 15:38 by Bridget Verdin) Smoking Status: Never smoker How often do you have a drink containing alcohol: never AUDIT-C Alcohol total score: 0 Non-prescribed substance use: denies use Exam Narrative: Exam Narrative: Constitutional: Well-developed, well-nourished, no acute distress. HEENT: Normocephalic, atraumatic. Neck: Normal range of motion. Nontender. Supple. Heart: Intact distal pulses. Lungs: No chest discomfort. No wheezes, rhonchi, or rales. Abdomen: Not distended. Back: Normal range of motion. Extremities: Normal range of motion. No injury. Skin: Intact. No rash. Warm. No erythema or pallor. Neurologic: No altered sensation. No weakness. Alert and oriented. Psychiatric: No suicidality. No anxiety or depression. No insomnia. Nursing notes and vitals signs are reviewed. Const: Vital Signs, click to edit/add: Vital Signs - 24 hr 11/17/24 22:06 Temperature 97.8 F Pulse Rate [Left P ulse Oximeter] 94 Respiratory Rate 18 Blood Pressure [Le ft Upper Arm] 118/92 H Pulse Oximetry 94 Oxygen Delivery Me thod Room Air Course Vital Signs Vital signs: Initial Vital Signs Temperature 97.8 F 11/17/24 22:06 Temperature Source Temporal Artery Scan 11/17/24 22:06 Pulse Rate 94 11/17/24 22:06 Respiratory Rate 18 11/17/24 22:06 Blood Pressure 118/92 H 11/17/24 22:06 Blood Pressure Mean 100 11/17/24 22:06 Blood Pressure Position Supine 11/17/24 22:06 Pulse Oximetry 94 11/17/24 22:06 Oxygen Delivery Method Room Air 11/17/24 22:06 Vital Signs Temperature 97.8 F 11/17/24 22:06 Pulse Rate 94 11/17/24 22:06 Respiratory Rate 18 11/17/24 22:06 Blood Pressure 118/92 H 11/17/24 22:06 Pulse Oximetry 94 11/17/24 22:06 Oxygen Delivery Method Room Air 11/17/24 22:06 Temperature 97.8 F 11/17/24 22:06 Pulse Rate 94 11/17/24 22:06 Respiratory Rate 18 11/17/24 22:06 Blood Pressure 118/92 H 11/17/24 22:06 Pulse Oximetry 94 11/17/24 22:06 Oxygen Delivery Method Room Air 11/17/24 22:06 Medical Decision Making MDM Narrative Medical decision making narrative: This patient has Parkinson's disease and is taking medicines that are notoriously constipating. He arrives here in apparent no significant distress and has normal vital signs. He has not had a bowel movement for upwards of a week or more. A pink lady enema was administered close to the end of my shift. He has yet to have a bowel movement at which time I am transferring care for this patient to the overnight physician. Discharge Plan Discharge Clinical Impression: Constipation Prescriptions: No Action amlodipine 10 mg tablet 10 mg PO DAILY clonazepam 0.5 mg tablet 0.25 - 0.5 mg PO BID PRN (Reason: anxiety) mirtazapine 15 mg tablet PO carbidopa-levodopa 25-100 mg tablet 1 tab PO 3XD atenolol 50 mg tablet 50 mg PO DAILY hydrochlorothiazide 25 mg tablet 25 mg PO DAILY venlafaxine 150 mg capsule,extended release 24hr 150 mg PO DAILY Follow Up/Referrals: Willy Coleman MD [Primary Care Provider, Family Practice]
[2024-11-17] MEDS: DOC/MIN OIL/MAG CIT/SOD PHOS 376 ML ENEMA PR (23:00)
--- OUTSIDE RECORDS SUMMARY | 2024-11-17 23:12 | XMS_ITS | Clinical Summary ---
Author Organization [facility] Address [address] , [address] [place] [address] Phone Care Team Providers Care Objects Conservator Name Role Phone Mario Coffey LPN Unavailable [phone] Conditions or Problems Problem Name Problem Code Onset Date Status Entry Date Provider Comment Standard Description Annotate Parkinson's disease without dyskinesia, with fluctuations 35058590 (SNOMED CT) 08/16 Active 08/16 Samuel Teague MD Parkinson's disease Prediabetes 958127471 (SNOMED CT) 06/08 Active 08/11 Mayra Sparks Prediabetes Imported from [facility]: [facility] ( at 09:03:53 AM) Insomnia, idiopathic 4147472 (SNOMED CT) 04/10 Active 08/11 Mayra Sparks Primary insomnia Imported from [facility]: [facility] ( at 09:03:53 AM) Generalized anxiety disorder 35687059 (SNOMED CT) 03/06 Active 08/11 Mayra Sparks Generalized anxiety disorder Imported from [facility]: [facility] ( at 09:03:53 AM) Depression 13768712 (SNOMED CT) 03/06 Active 08/11 Mayra Sparks Depressive disorder Imported from [facility]: [facility] ( at 09:03:53 AM) Controlled substance agreement signed Z79.899 (ICD-10-CM) 06/05 Active 08/11 Mayra Sparks Other termination clerk (current) drug therapy Imported from [facility]: [email or web address] ( at 09:03:53 AM) Benign essential HTN I10 (ICD-10-CM) 06/08 Active 08/11 Mayra Clare Essential (primary) hypertension Imported from [facility]: [facility] ( at 09:03:53 AM) Atypical chest pain R07.89 (ICD-10-CM) 10/18 Active 08/11 Mayra Sparks Other chest pain Imported from [facility]: [email or web address] ( at 09:03:53 AM) Medications Medication Instructions Start Date Stop Date Generic Name NDC Provider CARBIDOPA-LEVODOPA 25-100 MG TABS Take 1 tablet by mouth four times a day at 8a, 12n, 4p, and 8p 06/20 carbidopa-levodopa 81151625759 Mario Coffey LPN BUSPIRONE HCL 15 MG TABS Take 1 tablet by mouth three times a day 07/14 buspirone 29293108324 Samuel Teague MD MAGNESIUM GLUCONATE (MAGNESIUM GLUCONATE) 550 MG TABS Take 1 tablet by mouth once a day MAGNESIUM GLUCONATE Samuel Teague MD CLONAZEPAM 0.5 MG TABS 0.5-1 tablet by mouth three times a day as needed 07/14 clonazepam 49125439763 Samuel Teague MD HYDROCHLOROTHIAZIDE 25 MG TABS Take 1 tablet by mouth once a day 03/28 hydrochlorothiazide 81621084657 Samuel Teague MD MIRTAZAPINE 15 MG TABS Take 0.5 tablet by mouth every night 07/14 mirtazapine 91368981223 Samuel Teague MD VENLAFAXINE HCL ER 150 MG [id number] Take 1 capsule by mouth once a day 07/14 venlafaxine 36879756844 Samuel Teague MD AMLODIPINE BESYLATE 10 MG TABS Take 1 tablet by mouth once a day 03/28 amlodipine 43373488613 Samuel Teague MD ATENOLOL 50 MG TABS Take 1 tablet by mouth once a day 03/28 atenolol 15096490691 Samuel Teague MD CARBIDOPA-LEVODOPA 25-100 MG TABS Take 1 tablet by mouth three times a day 06/20 carbidopa-levodopa 46917523886 Samuel Teague MD VENLAFAXINE HCL ER 150 MG [id number] Take 1 Capsule (150 mg) by mouth once daily with a meal. 07/14 venlafaxine 24071201096 QIEUSER QIEUSER VENLAFAXINE HCL ER 37.5 MG [id number] Take 1 Capsule (37.5 mg) by mouth once daily with a meal. Take along with the 150mg cap for total daily dose of 187.5mg daily 07/14 venlafaxine 33564506145 QIEUSER QIEUSER MIRTAZAPINE 15 MG TABS TAKE 1/2 TABLET(7.5 MG) BY MOUTH AT BEDTIME 07/14 mirtazapine 56808186023 QIEUSER QIEUSER MAGNESIUM GLUCONATE (MAGNESIUM GLUCONATE) 550 MG TABS Take 1 Tablet by mouth once daily. 08/16 MAGNESIUM GLUCONATE QIEUSER QIEUSER HYDROCHLOROTHIAZIDE 25 MG TABS Take 1 Tablet (25 mg) by mouth once daily. 03/28 hydrochlorothiazide 65068201306 QIEUSER QIEUSER CLONAZEPAM 0.5 MG TABS 0.5 - 1 tab PO three times a day PRN as needed for anxiety 07/14 clonazepam 57195590866 QIEUSER QIEUSER CARBIDOPA-LEVODOPA 25-100 MG TABS TAKE 1 TABLET BY MOUTH THREE TIMES DAILY 06/20 carbidopa-levodopa 42836803690 QIEUSER QIEUSER BUSPIRONE HCL 15 MG TABS Take 1 Tablet (15 mg) by mouth three times daily. 07/14 buspirone 26153820520 QIEUSER QIEUSER ATENOLOL 50 MG TABS Take 1 Tablet (50 mg) by mouth once daily. 03/28 atenolol 71177171254 QIEUSER QIEUSER AMLODIPINE BESYLATE 10 MG TABS Take 1 Tablet (10 mg) by mouth once daily. 03/28 amlodipine 79252354020 QIEUSER QIEUSER Medications Administered No information available. [...] Detail Appointment 03:30 PM Samuel curtis MD, [facility] [address] [address], [place], [address], Appointment 02:15 PM Samuel curtis MD, [address], [address], [place], [address], Pending order Follow up Pending order Follow up Procedures No information available. Vital Signs No information available. Immunizations No information available. Advance Directives No information available.
[2024-11-18] MEDS: MAGNESIUM CITRATE 300 ML SOLUTION PO (00:47)
== END 2024-11-18 00:50 | disposition home or self-care (01) ==
PROVIDERS: Emergency Provider Internal Medicine; PCP Family Medicine
DX: K59.00 Constipation, unspecified (principal)
CPT/HCPCS: 99283; 99284; A9270